=== PATIENT | male | born 1980 | race Caucasian/White ===

== ENCOUNTER 2021-07-05 13:56 | Outpatient (REF) | payer OTHER, SELFPAY ==
[2021-07-05 14:45] LABS: Influenza A PCR NEGATIVE (Negative); Influenza B PCR NEGATIVE (Negative); Resp Syncy Virus RNA Qual PCR NEGATIVE (Negative); SARS COV2 PCR INHOUSE NEGATIVE (Negative)
== END 2021-07-05 13:57 | disposition home or self-care (01) ==
LOC: HO.LNP 13:56
PROVIDERS: Visit Provider Hospitalist
DX: Z20.822 Contact with and (suspected) exposure to COVID-19 (principal); R06.00 Dyspnea, unspecified
CPT/HCPCS: 0241U

== ENCOUNTER 2021-07-12 12:11 | Outpatient (REF) | payer OTHER, SELFPAY ==
--- NOTE | ~2021-07-12 | XR_ITS ---
EXAMINATION: XR CHEST CLINICAL INFORMATION: Dyspnea COMPARISON: None TECHNIQUE: 2 views of the chest were obtained. FINDINGS: There is no evidence of acute parenchymal disease, pneumothorax, or pleural effusion. Heart normal size. No evidence of pulmonary edema. There is a region of some pleural thickening seen central peripheral left hemithorax which may be related to old nondisplaced rib fracture or pleural plaque. XR/XR chest 2V IMPRESSION: No acute disease.
== END 2021-07-12 12:12 | disposition home or self-care (01) ==
LOC: HO.HMGCX 12:11
PROVIDERS: PCP Family Medicine; Visit Provider Family Medicine
DX: R06.00 Dyspnea, unspecified (principal)
CPT/HCPCS: 71046

== ENCOUNTER 2024-12-23 14:04 | Outpatient (AMB) | payer OTHER, SELFPAY ==
--- NOTE | 2024-12-23 14:19 | MHC.PC.OV ---
Vital Signs 12/23/24 14:26 Height 5 ft 7 in BMI Reason not done Patient refused/unable BP 130/60 Blood Pressure Location Lt brachial Position Sitting Respiration 16 Pulse 87 Pulse Source Pulse Oximeter Temp 98.0 F Temp Source Oral Pulse Oximetry (%) 97 Oxygen Delivery Method Room Air Intake Visit Reasons: Rehab F/U discharged december 07 Intake Note: patient is scheduled for tcm Parachute Manufacturing Supervisor Required: No Automotive Service Manager: Present Accompanied by: Family/Other Allergies acetaminophen [From VICODIN] Allergy (Mild, Verified 12/23/24 14:21) HIVES bee pollen [BEE STINGS] Allergy (Unknown, Verified 12/23/24 14:21) ANAPHYLATIC hydrocodone [Vicodin] Allergy (Unknown, Verified 12/23/24 14:21) hives From VICODIN Allergy (Mild, Uncoded 07/05/21 12:19) HIVES Tobacco use date assessed: 09/05/22 HPI Rehab F/U discharged december 07 HPI Details Patient initially presented to [facility] after being found down by his with right-sided weakness left-sided gaze and inability to speak coherently. CT scan of the head showed left-sided MCA (M2) occlusion and he was transferred to [facility]. A repeat CTA and CT head showed left MCA infarcts, age indeterminate, and infarcts in the right cerebellar hemisphere and a right M2 infarct. Unfortunately, he was outside the thrombolytic therapy window and was not a candidate for thrombectomy. Neurology was consulted. He was started on aspirin and atorvastatin. He had positive Oropeza's criteria for endocarditis and he was started on IV ampicillin/ceftriaxone x6 weeks. Blood cultures were positive for Enterococcus faecalis. Further imaging showed splenic and renal infarcts likely secondary to septic emboli. Imaging also showed a T1 vertebral lytic lesion. Troponin levels were elevated likely secondary to demand ischemia. A transthoracic echo due to endocarditis showed progression of aortic and mitral valve disease. Patient may need valve repair in future. He remains on aspirin and atorvastatin. Referred to neurology Continue divalproex PT/OT rehab Speech language pathology Regular diet with nectar thick liquids He states he is no longer on linezolid. Referred to Infectious Disease Recent endocarditis and aortic and mitral valve disease. Referred to Cardiology Incidental T1 vertebral lytic lesion Check bone scan He is scheduled for physical therapy, occupational therapy. He has a speech language pathologist working with him. TCM TCM Information Date of Discharge 12/15/24 Discharged From Other ([facility] Interactive Contact Date (Reference documentation from this date) 12/23/24 [facility]LY [facility] Social History Housing: Apartment Patient Tobacco Use Status: Current everyday Tobacco user e-Cigarette/Vaping Use: Never Used Second Hand Smoke Exposure: No service: No Current occupational status: unemployed Current occupation: seeking employment. Cognitive needs: No Hearing needs: No Vision needs: No Questionnaire PHQ-9 Over the last 2 weeks, how often have you been bothered by any of the following problems? 1. Little interest or pleasure in doing things: not at all 2. Feeling down, depressed, or hopeless: not at all 3. Trouble falling or staying asleep, or sleeping too much: nearly every day 4. Feeling tired or having little energy: more than half the days 5. Poor appetite or overeating: not at all 6. Feeling bad about yourself - or that you are a failure or have let yourself or your family down: more than half the days 7. Trouble concentrating on things, such as reading the newspaper or watching television: not at all 8. Moving or speaking so slowly that other people could have noticed. Or the opposite - being so fidgety or restless that you have been moving around a lot more than usual: not at all 9. Thoughts that you would be better off or of hurting yourself in some way: not at all Total score: 7 Source: Developed by Drs. Jimmy Blevins, Christina Erwin, Robert Werner and colleagues, with an educational carmella from [employer]. Thrive Questionnaire I am a: Parent/Caregiver What is your living situation today?: I have a steady place to live Within the past 12 months, did the food you bought not last and you didn't have the money to get more?: I choose not to answer this question Within the past 12 months, did you worry whether your food would run out before you got money to buy more?: I choose not to answer this question Do you have trouble paying for medicines?: I choose not to answer this question Do you have trouble getting transportation to medical appointments?: Yes Do you have trouble paying your heating and electricity bill?: I choose not to answer this question Do you have trouble taking care of your child, family member or friend?: I choose not to answer this question Do you have trouble with day-to-day activities such as bathing, preparing meals, shopping, managing finances, etc.?: Yes Are you currently unemployed and looking for a job?: No Are you interested in more education?: No Please select the resources that you would like help with: Transportation Currently or been in a relationship where the following occur: I choose not to answer THRIVE Score: 1 AUDIT C Alcohol Use Questionnaire (AUDIT-C) 1. How often do you have a drink containing alcohol?: Never Total Score: 0 CRISTINA-7 AMB Questionnaire CRISTINA-7 Feeling nervous, anxious, or on edge: 0 = Not at all Not being able to stop or control worryin = Not at all Worrying too much about different things: 0 = Not at all Trouble relaxin = Not at all Being so restless that it is hard to sit still: 0 = Not at all Becoming easily annoyed or irritable: 0 = Not at all Feeling afraid as if something awful might happen: 0 = Not at all Total CRISTINA-7 score (0-4 normal; 5-9 mild; 10-14 moderate; 15-21 severe): 0 Source: Developed by Drs. Jimmy Blevins, Christina Erwin, Robert Werner and colleagues, with an educational carmella from [employer]. Review of Systems Const Denies chills, Denies fatigue, Denies fever(s), Denies headache(s) and Denies weakness ENT Denies dizziness and Denies headache(s) Card Denies dyspnea Resp Denies cough, Denies dyspnea, Denies wheezing and Denies other (shortness of breath) Musc Denies numbness and Denies tingling Neuro Denies dizziness, Denies headache(s), Denies numbness, Denies tingling and Denies weakness Psych Denies anxiety and Denies depression Endo Denies fatigue Aller/Immun Denies wheezing Physical exam (Primary Care) Tobacco/Smoking Status: Tobacco use Status Tobacco use date assessed 09/05/22 12/23/24 14:25 Patient Tobacco Use Status Current everyday Tobacco 12/23/24 14:25 e-Cigarette/Vaping Use Never Used 12/23/24 14:25 PHQ-9: PHQ-9 Score PHQ-9: Total score 7 12/23/24 14:25 Currently or been in a relationship where the following occur: I choose not to answer Const General: well developed; No acute distress Nutritional Appearance: well nourished Orientation/consciousness: patient oriented x3 HENMT Head: Yes normocephalic and Yes atraumatic Eyes General: appearance normal, both eyes and all related structures Pupils: Equal, round and reactive pupils present EOM: EOMs intact bilaterally Resp Effort & Inspection: normal respiratory effort Cardio Heart sounds: Murmur heart sound present Neuro Other: R sided weakness Facial weakness General: patient oriented x3 and gait normal Cranial nerves: Yes Equal, round and reactive pupils present Psych Affect: normal affect Coding Level of Care Code Est Pt Level 5 (26874) Diagnoses Left acute arterial ischemic stroke, MCA (middle cerebral artery) I63.512 Acute ischemic right MCA stroke I63.511 Embolic stroke involving right cerebellar artery I63.441 Endocarditis I38 Mitral valve disease I05.9 DOMINGA (acute kidney injury) N17.9 Splenic infarction D73.5 Lytic lesion of bone on x-ray M89.8X9 Expressive aphasia R47.01 Yeast infection of the skin B37.2 Assessment & Plan Assessment & Plan (1) Left acute arterial ischemic stroke, MCA (middle cerebral artery): Code(s): I63.512 - Cerebral infarction due to unspecified occlusion or stenosis of left middle cerebral artery Category: Medical (2) Acute ischemic right MCA stroke: Code(s): I63.511 - Cerebral infarction due to unspecified occlusion or stenosis of right middle cerebral artery Category: Medical (3) Embolic stroke involving right cerebellar artery: Code(s): I63.441 - 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 Category: Medical (4) Endocarditis: Code(s): I38 - Endocarditis, valve unspecified Category: Medical (5) Mitral valve disease: Code(s): I05.9 - Rheumatic mitral valve disease, unspecified Category: Medical (6) DOMINGA (acute kidney injury): Code(s): N17.9 - Acute kidney failure, unspecified Category: Medical (7) Splenic infarction: Code(s): D73.5 - Infarction of spleen Category: Medical (8) Lytic lesion of bone on x-ray: Code(s): M89.8X9 - Other specified disorders of bone, unspecified site Category: Medical (9) Expressive aphasia: Code(s): R47.01 - Aphasia Category: Medical (10) Yeast infection of the skin: Code(s): B37.2 - Candidiasis of skin and nail Category: Medical Plan Patient initially presented to [facility] on 11/05/24 after being found down by his with right-sided weakness left-sided gaze and inability to speak coherently. CT scan of the head showed left-sided MCA (M2) occlusion and he was transferred to [facility] on 11/06/24. A repeat CTA and CT head showed left MCA infarcts, age indeterminate, and infarcts in the right cerebellar hemisphere and a right M2 infarct. Unfortunately, he was outside the thrombolytic therapy window and was not a candidate for thrombectomy. Neurology was consulted. He was started on aspirin and atorvastatin. He had positive Oropeza's criteria for endocarditis and he was started on IV ampicillin/ceftriaxone x6 weeks. Blood cultures were positive for Enterococcus faecalis. Further imaging showed splenic and renal infarcts likely secondary to septic emboli. Imaging also showed a T1 vertebral lytic lesion. Troponin levels were elevated likely secondary to demand ischemia. A transthoracic echo due to endocarditis showed progression of aortic and mitral valve disease. Patient may need valve repair in future. Pt was discharged on 3 weeks later on: Aspirin Atorvastatin Divalproex Linezolid - Completed Melatonin Nicotine Discontinued & no longer smoking Pantoprazole Quetiapine Ceftriaxone - Completed Referred to neurology He remains on aspirin and atorvastatin. Continue divalproex PT/OT rehab [facility] Speech language pathology. [place]line via [facility] Regular diet with nectar thick liquids Finished linezolid today. Referred to Infectious Disease @ [facility] Recent endocarditis and aortic and mitral valve disease. Referred to Cardiology Dr Hilario Incidental T1 vertebral lytic lesion Check bone scan Orders: Orders NM bone scan whole body Today M89.8X9 - Other specified disorders of bone, unspecified site Troponin-I High Sensitivity Today I05.9 - Rheumatic mitral valve disease, unspecified Complete Blood Count Auto Diff Today N17.9 - Acute kidney failure, unspecified, Z00.00 - Encounter for general adult medical examination without abnormal findings Comprehensive Met. Panel Today N17.9 - Acute kidney failure, unspecified B Type Natriuretic Peptide Today I05.9 - Rheumatic mitral valve disease, unspecified, I50.9 - Heart failure, unspecified Referrals Neurology Referral I38 - Endocarditis, valve unspecified, I63.441 - 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, I63.511 - Cerebral infarction due to unspecified occlusion or stenosis of right middle cerebral artery, I63.512 - Cerebral infarction due to unspecified occlusion or stenosis of left middle cerebral artery, I66.9 - Occlusion and stenosis of unspecified cerebral artery, I76 - Septic arterial embolism, R47.01 - Aphasia Ophthalmology Referral H53.9 - Unspecified visual disturbance, I38 - Endocarditis, valve unspecified, I66.9 - Occlusion and stenosis of unspecified cerebral artery, I76 - Septic arterial embolism Infectious Disease Referral I38 - Endocarditis, valve unspecified Cardiology Referral I05.9 - Rheumatic mitral valve disease, unspecified, I38 - Endocarditis, valve unspecified Medications: New lidocaine 5% 1 ea topical DAILY 30 days 30 grams 2RF G62.9 - Polyneuropathy, unspecified pantoprazole (Protonix) 20 mg PO DAILY 90 days 90 tabs 3RF gabapentin 300 mg PO BEDTIME 30 days 30 caps 2RF clotrimazole 1% 1 appl topical BID 2 weeks 45 grams 1RF
[2024-12-23 14:26] VITALS: BP 130/60; PULSE 87; RESP 16; TEMP 36.7; O2SAT 97
== END 2024-12-23 15:27 | disposition home or self-care (01) ==
LOC: HO.HMCFM 14:05
PROVIDERS: PCP Family Medicine; Visit Provider Family Medicine
DX: I63.512 Cerebral infarction due to unspecified occlusion or stenosis of left middle cerebral artery (principal); I63.511 Cerebral infarction due to unspecified occlusion or stenosis of right middle cerebral artery; I63.441 Cerebral infarction due to embolism of right cerebellar artery; I38 Endocarditis, valve unspecified; I05.9 Rheumatic mitral valve disease, unspecified; N17.9 Acute kidney failure, unspecified; D73.5 Infarction of spleen; M89.8X9 Other specified disorders of bone, unspecified site; R47.01 Aphasia; B37.2 Candidiasis of skin and nail

== ENCOUNTER → 2024-12-23 14:04 | Outpatient (BNVA) | payer OTHER, SELFPAY | PROVIDERS: PCP Family Medicine; Visit Provider Family Medicine | DX: Z13.89 Encounter for screening for other disorder (principal) ==

== ENCOUNTER 2024-12-23 15:17 | Outpatient (REF) | payer OTHER, SELFPAY ==
[2024-12-23 17:41] LABS: MANUAL DIFF FLAG NO
[2024-12-23 17:56] LABS: Basophils Percent Auto 0.6 % (0-2); Eosinophils Percent Auto 0.6 % (0-4); Hemoglobin 12.4 g/dl (14.0-18.0); Imm Gran Abs Auto 0.02 X10*3/uL (0.00-0.03); Imm Gran Pct Auto 0.3 % (0.0-0.4); Lymphocytes Absolute Auto 1.9 X10*3/uL (1.2-4.9); Lymphocytes Percent Auto 28.5 % (20-40); Mean Corpuscular HGB Conc 32.6 g/dl (31.0-36.0); Mean Corpuscular Hemoglobin 28.6 pg (27.0-33.0); Mean Corpuscular Volume 87.8 fL (80.0-98.0); Mean Platelet Volume 10.8 fL (9.4-12.4); Monocytes Absolute Auto 0.6 X10*3/uL (0.1-1.2); Monocytes Percent Auto 8.2 % (2-11); Neutrophils Absolute Auto 4.1 x10*3/uL (2.0-8.3); Neutrophils Percent Auto 61.8 % (45-73); Platelet Count 163 X10*3/uL (160-400); Red Blood Count 4.33 X10*6/uL (4.60-5.80); Red Cell Distribution Width 22.1 % (11.0-16.0); White Blood Count 6.7 X10*3/uL (4.8-10.8)
[2024-12-23 18:14] LABS: Troponin-I High Sensitivity < 2.7 ng/L (<3.5-35.0)
[2024-12-23 18:16] LABS: Alanine Aminotransferase 13 U/L (0-40); Albumin Level 3.8 g/dL (3.5-5.0); Alkaline Phosphatase 56 U/L (39-117); Anion Gap 11 (12-20); Aspartate Amino Transferase 29 U/L (5-37); Bilirubin Total 0.3 mg/dL (0.0-1.0); Blood Urea Nitrogen 15 mg/dL (9-16); Calcium 8.9 mg/dL (8.4-10.2); Carbon Dioxide 22 mmol/L (22-29); Chloride 108 mmol/L (96-108); Estimated Glomerular Filt Rate > 60; Glucose Random 86 mg/dL (60-115); Potassium 4.2 mmol/L (3.3-5.1); Sodium 137 mmol/L (135-145); Total Protein 6.8 g/dL (6.5-8.0)
[2024-12-23 18:20] LABS: B Type Natriuretic Peptide 54 pg/mL (<100)
== END 2024-12-23 15:18 | disposition home or self-care (01) ==
LOC: HO.WFDLDS 15:17
PROVIDERS: Visit Provider Family Medicine
DX: I63.513 Cerebral infarction due to unspecified occlusion or stenosis of bilateral middle cerebral arteries (principal); I63.441 Cerebral infarction due to embolism of right cerebellar artery; I38 Endocarditis, valve unspecified; I05.9 Rheumatic mitral valve disease, unspecified; N17.9 Acute kidney failure, unspecified; D73.5 Infarction of spleen; M89.8X9 Other specified disorders of bone, unspecified site; R47.01 Aphasia; B37.2 Candidiasis of skin and nail; Z00.00 Encounter for general adult medical examination without abnormal findings; I50.9 Heart failure, unspecified
CPT/HCPCS: 36415; 80053; 83880; 84484; 85025; 99212

== ENCOUNTER 2024-12-30 15:22 | Outpatient (AMB) | payer OTHER, SELFPAY ==
--- NOTE | 2024-12-30 15:58 | A.OFFPC_ITS ---
Intake Visit Reasons: f/u disability forms, chronic conditions Allergies acetaminophen [From VICODIN] Allergy (Mild, Verified 12/23/24 14:21) HIVES bee pollen [BEE STINGS] Allergy (Unknown, Verified 12/23/24 14:21) ANAPHYLATIC hydrocodone [Vicodin] Allergy (Unknown, Verified 12/23/24 14:21) hives From VICODIN Allergy (Mild, Uncoded 07/05/21 12:19) HIVES Medication List - Last Reconciled 12/30/24 by Christopher Sheridan MD amoxicillin 500 mg PO Q12H 14 days aspirin 81 mg PO DAILY atorvastatin 80 mg PO BEDTIME cetirizine 10 mg PO DAILY PRN 90 days clotrimazole 1% 1 appl topical BID 2 weeks divalproex mg PO gabapentin 300 mg PO BEDTIME 30 days lidocaine 5% 1 ea topical DAILY 30 days melatonin mg PO omeprazole 20 mg PO DAILY 90 days pantoprazole 20 mg PO DAILY pantoprazole (Protonix) 20 mg PO DAILY 90 days ProAir HFA 90 mcg/actuation (albuterol sulfate) 2 puffs inhalation Q4-6H PRN 1 month NS quetiapine mg PO Tobacco use date assessed: 09/05/22 HPI f/u disability forms, chronic conditions HPI Details 44 y/o male presents for disability brendan rwork, labs & CVA. S/p?stroke Had?referred?him?to?[facility]?neurology?and?neuro?has?not?they?can?get?him?in in?the?next?few?weeks?as?we?had?hoped. They?recommended?getting?an?MRI?which?I?have?ordered?today. [facility] Social History Housing: Apartment Patient Tobacco Use Status: Current everyday Tobacco user e-Cigarette/Vaping Use: Never Used Second Hand Smoke Exposure: No service: No Current occupational status: unemployed Current occupation: seeking employment. Cognitive needs: No Hearing needs: No Vision needs: No Questionnaire Thrive Questionnaire Date Thrive assessed: 12/23/24 I am a: Parent/Caregiver What is your living situation today?: I have a steady place to live Within the past 12 months, did the food you bought not last and you didn't have the money to get more?: I choose not to answer this question Within the past 12 months, did you worry whether your food would run out before you got money to buy more?: I choose not to answer this question Do you have trouble paying for medicines?: I choose not to answer this question Do you have trouble getting transportation to medical appointments?: Yes Do you have trouble paying your heating and electricity bill?: I choose not to answer this question Do you have trouble taking care of your child, family member or friend?: I choose not to answer this question Do you have trouble with day-to-day activities such as bathing, preparing meals, shopping, managing finances, etc.?: Yes Are you currently unemployed and looking for a job?: No Are you interested in more education?: No Please select the resources that you would like help with: Transportation Currently or been in a relationship where the following occur: I choose not to answer THRIVE Score: 1 Review of Systems Const Denies chills, Denies fatigue, Denies fever(s), Denies headache(s) and Denies we akness ENT Denies dizziness and Denies headache(s) Card Denies dyspnea Resp Denies cough, Denies dyspnea, Denies wheezing and Denies other (shortness of breath) Musc Denies numbness and Denies tingling Neuro Denies dizziness, Denies headache(s), Denies numbness, Denies tingling and Denies weakness Psych Denies anxiety and Denies depression Endo Denies fatigue Aller/Immun Denies wheezing Physical exam (Primary Care) Tobacco/Smoking Status: Tobacco use Status Tobacco use date assessed 09/05/22 12/30/24 15:58 Patient Tobacco Use Status Current everyday Tobacco 12/30/24 15:58 e-Cigarette/Vaping Use Never Used 12/30/24 15:58 Thrive Assessment: Date of Thrive Assessment Date Thrive assessed 12/23/24 12/30/24 15:58 Currently or been in a relationship where the following occur: I choose not to answer Const General: well developed; No acute distress Nutritional Appearance: well nourished Orientation/consciousness: patient oriented x3 HENMT Head: Yes normocephalic and Yes atraumatic Eyes General: appearance normal, both eyes and all related structures Pupils: Equal, round and reactive pupils present EOM: EOMs intact bilaterally Resp Effort & Inspection: normal respiratory effort Neuro General: patient oriented x3 and gait normal Cranial nerves: Yes Equal, round and reactive pupils present Psych Affect: normal affect Coding Level of Care Code Est Pt Level 4 (98153) Diagnoses Left acute arterial ischemic stroke, MCA (middle cerebral artery) I63.512 Embolic stroke involving right cerebellar artery I63.441 Acute ischemic right MCA stroke I63.511 Right leg weakness R29.898 Right arm weakness R29.898 Assessment & Plan Assessment & Plan (1) Left acute arterial ischemic stroke, MCA (middle cerebral artery): Code(s): I63.512 - Cerebral infarction due to unspecified occlusion or stenosis of left middle cerebral artery Category: Medical Plan: S/p?stroke Had?referred?him?to?[facility]?neurology?and?neuro?has?not?they?can?get?him?in in?the?next?few?weeks?as?we?had?hoped. They?recommended?getting?an?MRI?which?I?have?ordered?today. If?I?see?any?concerns?I?will?request?a?sooner?appointment. (2) Embolic stroke involving right cerebellar artery: Code(s): I63.441 - 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 Category: Medical Plan: As above (3) Acute ischemic right MCA stroke: Code(s): I63.511 - Cerebral infarction due to unspecified occlusion or stenosis of right middle cerebral artery Category: Medical Plan: As above (4) Right leg weakness: Code(s): R29.898 - Other symptoms and signs involving the musculoskeletal system Category: Medical Plan: Will?get?patient?ankle-foot?orthotic (5) Right arm weakness: Code(s): R29.898 - Other symptoms and signs involving the musculoskeletal system Category: Medical Plan: Right?arm?weakness/flaccid?paralysis Continue?physical?therapy/occupational?therapy Orders: Orders MR head/brain wo con Today H53.419 - [place] involving central area, unspe cified eye, I63.441 - 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, I63.511 - Cerebral infarction due to unspecified occlusion or stenosis of right middle cerebral artery, I63.512 - Cerebral infarction due to unspecified occlusion or stenosis of left middle cerebral artery, I66.9 - Occlusion and stenosis of unspecified cerebral artery, I76 - Septic arterial embolism, R47.01 - Aphasia Medications: New amoxicillin 500 mg PO Q12H 14 days 28 tabs 0RF miscellaneous medical supply Daily As directed, 999 days 1 ea 0RF I63.512 - Cerebral infarction due to unspecified occlusion or stenosis of left middle cerebral artery, R29.898 - Other symptoms and signs involving the musculoskeletal system
== END 2024-12-30 16:07 | disposition home or self-care (01) ==
LOC: HO.HMCFM 15:23
PROVIDERS: PCP Family Medicine; Visit Provider Family Medicine
DX: I63.512 Cerebral infarction due to unspecified occlusion or stenosis of left middle cerebral artery (principal); I63.441 Cerebral infarction due to embolism of right cerebellar artery; I63.511 Cerebral infarction due to unspecified occlusion or stenosis of right middle cerebral artery; R29.898 Other symptoms and signs involving the musculoskeletal system

== ENCOUNTER → 2024-12-30 15:22 | Outpatient (BNVA) | payer OTHER, SELFPAY | PROVIDERS: PCP Family Medicine; Visit Provider Family Medicine | DX: H53.419 Scotoma involving central area, unspecified eye (principal); R29.898 Other symptoms and signs involving the musculoskeletal system; R47.01 Aphasia; I76 Septic arterial embolism; Z86.73 Personal history of transient ischemic attack (TIA), and cerebral infarction without residual deficits | CPT/HCPCS: 99212 ==

== ENCOUNTER 2025-01-04 13:50 | Outpatient (AMB) | payer OTHER, SELFPAY ==
--- NOTE | 2025-01-04 13:53 | A.OFFPC_ITS ---
Vital Signs 01/04/25 14:04 Height 5 ft 7 in BMI Reason not done Patient refused/unable BP 120/60 Blood Pressure Location Lt brachial Position Sitting Respiration 16 Pulse 77 Pulse Source Pulse Oximeter Temp 97.7 F Temp Source Oral Pulse Oximetry (%) 93 Oxygen Delivery Method Room Air Intake Visit Reasons: Disability PW Allergies acetaminophen [From VICODIN] Allergy (Mild, Verified 01/04/25 13:55) HIVES bee pollen [BEE STINGS] Allergy (Unknown, Verified 01/04/25 13:55) ANAPHYLATIC hydrocodone [Vicodin] Allergy (Unknown, Verified 01/04/25 13:55) hives From VICODIN Allergy (Mild, Uncoded 01/04/25 13:55) HIVES Tobacco use date assessed: 01/04/25 Dental Screening Dental Screen Date: 01/04/25 Did you have a dental visit in the last 12 months?: Yes Did you have a dental problem in the last 6 months where you did not have access to dental care?: Yes Was dental information given to patient?: No HPI Disability PW HPI Details 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 Patient?presents?today?for?transitional?assistance?paperwork?which?I?filled?out. Also?filled?out [place] handicap?placard. [facility] Social History Housing: Apartment Patient Tobacco Use Status: Current everyday Tobacco user e-Cigarette/Vaping Use: Never Used Second Hand Smoke Exposure: No service: No Current occupational status: unemployed Current occupation: seeking employment. Cognitive needs: No Hearing needs: No Vision needs: No Questionnaire PHQ-9 Over the last 2 weeks, how often have you been bothered by any of the following problems? 1. Little interest or pleasure in doing things: not at all 2. Feeling down, depressed, or hopeless: not at all 3. Trouble falling or staying asleep, or sleeping too much: not at all 4. Feeling tired or having little energy: not at all 5. Poor appetite or overeating: not at all 6. Feeling bad about yourself - or that you are a failure or have let yourself or your family down: not at all 7. Trouble concentrating on things, such as reading the newspaper or watching television: not at all 8. Moving or speaking so slowly that other people could have noticed. Or the opposite - being so fidgety or restless that you have been moving around a lot more than usual: not at all 9. Thoughts that you would be better off or of hurting yourself in some way: not at all Total score: 0 Depression Screening Interpretation: Negative Depression Screening Done: Yes [id number] - PHQ-9 Billing: Yes Source: Developed by Drs. Jimmy Blevins, Christina Erwin, Robert Werner and colleagues, with an educational carmella from [employer]. Thrive Questionnaire Date Thrive assessed: 01/04/25 I am a: Parent/Caregiver What is your living situation today?: I have a steady place to live Within the past 12 months, did the food you bought not last and you didn't have the money to get more?: I choose not to answer this question Within the past 12 months, did you worry whether your food would run out before you got money to buy more?: I choose not to answer this question Do you have trouble paying for medicines?: I choose not to answer this question Do you have trouble getting transportation to medical appointments?: Yes Do you have trouble paying your heating and electricity bill?: I choose not to answer this question Do you have trouble taking care of your child, family member or friend?: I choose not to answer this question Do you have trouble with day-to-day activities such as bathing, preparing meals, shopping, managing finances, etc.?: Yes Are you currently unemployed and looking for a job?: No Are you interested in more education?: No Please select the resources that you would like help with: Transportation Currently or been in a relationship where the following occur: I choose not to answer THRIVE Score: 1 CRISTINA-7 AMB Questionnaire CRISTINA-7 Date CRISTINA - 7 assessed: 01/04/25 Feeling nervous, anxious, or on edge: 0 = Not at all Not being able to stop or control worryin = Not at all Worrying too much about different things: 0 = Not at all Trouble relaxin = Not at all Being so restless that it is hard to sit still: 0 = Not at all Becoming easily annoyed or irritable: 0 = Not at all Feeling afraid as if something awful might happen: 0 = Not at all Total CRISTINA-7 score (0-4 normal; 5-9 mild; 10-14 moderate; 15-21 severe): 0 Source: Developed by Drs. Jimmy Blevins, Christina Erwin, Robert Werner and colleagues, with an educational carmella from [employer]. CRISTINA-7 Assessment Billing CRISTINA-7 Assessment Tool: CRISTINA-7 Assessment 04981 Review of Systems Const Denies chills, Denies fatigue, Denies fever(s), Denies headache(s) and Denies weakness ENT Denies dizziness and Denies headache(s) Card Denies dyspnea Resp Denies cough, Denies dyspnea, Denies wheezing and Denies other (shortness of breath) Musc Denies numbness and Denies tingling Neuro Denies dizziness, Denies headache(s), Denies numbness, Denies tingling and Denies weakness Psych Denies anxiety and Denies depression Endo Denies fatigue Aller/Immun Denies wheezing Physical exam (Primary Care) Vital Signs: Last Vital Signs Temp 97.7 F 01/04/25 14:04 Pulse 77 01/04/25 14:04 Resp 16 01/04/25 14:04 BP 120/60 01/04/25 14:04 Pulse Ox 93 01/04/25 14:04 Oxygen Delivery Method Room Air 01/04/25 14:04 Tobacco/Smoking Status: Tobacco use Status Tobacco use date assessed 01/04/25 01/04/25 14:02 Patient Tobacco Use Status Current everyday Tobacco 01/04/25 13:54 e-Cigarette/Vaping Use Never Used 01/04/25 13:54 PHQ-9: PHQ-9 Score PHQ-9: Total score 0 01/04/25 14:02 Depression Screening Interpretation: Negative Thrive Assessment: Date of Thrive Assessment Date Thrive assessed 01/04/25 01/04/25 14:02 Currently or been in a relationship where the following occur: I choose not to answer Const General: well developed; No acute distress Nutritional Appearance: well nourished Orientation/consciousness: patient oriented x3 HENMT Head: Yes normocephalic and Yes atraumatic Eyes General: appearance normal, both eyes and all related structures Pupils: Equal, round and reactive pupils present EOM: EOMs intact bilaterally Resp Effort & Inspection: normal respiratory effort Auscultation: clear to auscultation bilaterally Cardio Rate: regular rate Rhythm: regular rhythm Heart sounds: S1 normal heart sound present, S2 normal heart sound present, no gallops, no murmurs and no rubs Neuro General: patient oriented x3 and gait normal Cranial nerves: Yes Equal, round and reactive pupils present Psych Affect: normal affect Coding Level of Care Code Est Pt Level 4 (13769) Diagnoses Left acute arterial ischemic stroke, MCA (middle cerebral artery) I63.512 Right leg weakness R29.898 Right arm weakness R29.898 Additional Codes CRISTINA-7 Assessment Billing - CRISTINA-7 Assessment Tool: CRISTINA-7 Assessment 15847 ([id number]) PHQ-9 - 40349 - PHQ-9 Billing: Yes ([id number]) Assessment & Plan Assessment & Plan (1) Left acute arterial ischemic stroke, MCA (middle cerebral artery): Code(s): I63.512 - Cerebral infarction due to unspecified occlusion or stenosis of left middle cerebral artery Category: Medical (2) Right leg weakness: Code(s): R29.898 - Other symptoms and signs involving the musculoskeletal system Category: Medical (3) Right arm weakness: Code(s): R29.898 - Other symptoms and signs involving the musculoskeletal system Category: Medical Plan Patient?with?endocarditis?and?septic?embo li?who?initially?presented?to?the?emergency?department?on?11/06/2024?with?multiple ?strokes/septic?emboli,?primarily?left?acute?MCA?stroke?with right?upper?and?lower?extremity?weakness/flaccid?paralysis. Patient?presents?today?for?transitional?assistance?paperwork?which?I?filled?out. Also?filled?out [place] handicap?placard. Social?worker?will?help?him?get SSDI?paperwork?started?and?I recommend?this?as?p atient?is?permanently?disabled. Medications: New epinephrine (EpiPen 2-Margarito) 0.3 mg (0.3 mL) IM Q4H 30 days PRN 2 ea 2RF anaphylaxis
[2025-01-04 14:04] VITALS: BP 120/60; PULSE 77; RESP 16; TEMP 36.5; O2SAT 93
== END 2025-01-04 16:39 | disposition home or self-care (01) ==
LOC: HO.HMCFM 13:52
PROVIDERS: PCP Family Medicine; Visit Provider Family Medicine
DX: I63.512 Cerebral infarction due to unspecified occlusion or stenosis of left middle cerebral artery (principal); R29.898 Other symptoms and signs involving the musculoskeletal system

== ENCOUNTER → 2025-01-04 13:50 | Outpatient (BNVA) | payer OTHER, SELFPAY | PROVIDERS: PCP Family Medicine; Visit Provider Family Medicine | DX: I69.351 Hemiplegia and hemiparesis following cerebral infarction affecting right dominant side (principal) | CPT/HCPCS: 96127; 99212 ==

== ENCOUNTER → 2025-01-06 10:00 | Outpatient (REF) | payer OTHER, SELFPAY ==
--- NOTE | ~2025-01-06 | NM_ITS ---
EXAMINATION: NM BONE SCAN WHOLE BODY HISTORY: M89.8X9 - Other specified disorders of bone, unspecified site. TECHNIQUE: A total body bone scan was performed following the intravenous administration of 25 mCi technetium 99m-MDP. COMPARISON: There are no prior studies for comparison. Review of the patient's medical record describes a lytic lesion in the T1 vertebral body on outside imaging. FINDINGS: There is a focus of increased uptake at the T1 vertebral level which is slightly to the left of midline. No additional abnormal spinal uptake is seen. Activity in the region of the right AC joint is likely degenerative in nature. There is also probable mild degenerative uptake involving the left ankle. A focus of activity in the right mandible may represent periodontal disease. The remainder the visualized osseous structures demonstrate a normal distribution of activity. There is normal bilateral renal uptake. NM/NM bone scan whole body IMPRESSION: Focus of increased uptake at the T1 vertebral level which is nonspecific, but concerning given the reported lytic lesion noted on outside imaging. MRI of the cervical spine is suggested for further evaluation. Electronically signed by: Jimmy Garza MD 01/06/2025 02:40 PM EDT
== END ==
LOC: HO.NUCMED 10:00
PROVIDERS: PCP Family Medicine; Visit Provider Family Medicine
DX: M89.8X9 Other specified disorders of bone, unspecified site (principal)
CPT/HCPCS: 78306; A9503

== ENCOUNTER → 2025-01-06 10:02 | Outpatient (BNV) | payer OTHER, SELFPAY | PROVIDERS: PCP Family Medicine; Visit Provider Radiology Diagnostic Radiology | DX: R93.7 Abnormal findings on diagnostic imaging of other parts of musculoskeletal system (principal) | CPT/HCPCS: 78306 ==

== ENCOUNTER 2025-03-09 11:03 | Outpatient (AMB) | payer OTHER, SELFPAY ==
--- NOTE | 2025-03-09 11:06 | MHC.PC.OV ---
Vital Signs 03/09/25 11:16 Height 5 ft 7 in Weight 186 lb BMI 29.1 BP 111/65 Blood Pressure Location Lt brachial Position Sitting Respiration 16 Pulse 80 Pulse Source Pulse Oximeter Temp 98.1 F Temp Source Oral Pulse Oximetry (%) 97 Oxygen Delivery Method Room Air Intake Visit Reasons: HDF from [facility] on 02/07/2025 Intake Note: patient here for HD follow up from [facility] Partner Management Consultant Required: No Allergies acetaminophen (From VICODIN) Allergy (Mild, Verified 03/09/25 11:11) HIVES bee pollen (BEE STINGS) Allergy (Unknown, Verified 03/09/25 11:11) ANAPHYLATIC hydrocodone (Vicodin) Allergy (Unknown, Verified 03/09/25 11:11) hives From VICODIN Allergy (Mild, Uncoded 01/04/25 13:55) HIVES Tobacco use date assessed: 03/09/25 Dental Screening Dental Screen Date: 03/09/25 Did you have a dental visit in the last 12 months?: Yes Did you have a dental problem in the last 6 months where you did not have access to dental care?: No Was dental information given to patient?: Patient has dentist HPI HDF from [facility] on 02/07/2025 HPI Details 44 y/o male presents to f/ hospital disch 02/07/25 - had presented for shortness of breath. 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 Chest x-ray and pro BNP suggested volume overload and prompted concern for valvular insufficiency. Found to have severe aortic insufficiency, severe mitral regurgitation, and what appeared to be a small VSD. Had went to operating room on 02/02 for aortic valve replacement, mitral valve repair, and VSD repair. Did well. Recommended f/u with Cardiology. PFS Social History Housing: Apartment Patient Tobacco Use Status: Former Tobacco user e-Cigarette/Vaping Use: Never Used Second Hand Smoke Exposure: No service: No Current occupational status: unemployed Current occupation: seeking employment. Current occupational exposures/hazards: No Cognitive needs: No Hearing needs: No Vision needs: No Questionnaire Thrive Questionnaire Date Thrive assessed: 12/23/24 I am a: Parent/Caregiver What is your living situation today?: I have a steady place to live Within the past 12 months, did the food you bought not last and you didn't have the money to get more?: I choose not to answer this question Within the past 12 months, did you worry whether your food would run out before you got money to buy more?: I choose not to answer this question Do you have trouble paying for medicines?: I choose not to answer this question Do you have trouble getting transportation to medical appointments?: Yes Do you have trouble paying your heating and electricity bill?: I choose not to answer this question Do you have trouble taking care of your child, family member or friend?: I choose not to answer this question Do you have trouble with day-to-day activities such as bathing, preparing meals, shopping, managing finances, etc.?: Yes Are you currently unemployed and looking for a job?: No Are you interested in more education?: No Please select the resources that you would like help with: Transportation Currently or been in a relationship where the following occur: I choose not to answer THRIVE Score: 1 CRISTINA-7 AMB Questionnaire CRISTINA-7 Date CRISTINA - 7 assessed: 01/04/25 Source: Developed by Drs. Jimmy Blevins, Christina Erwin, Robert Werner and colleagues, with an educational carmella from [employer]. Review of Systems Const Denies chills, Denies fatigue, Denies fever(s), Denies headache(s) and Denies weakness ENT Denies dizziness and Denies headache(s) Card Denies dyspnea Resp Denies cough, Denies dyspnea, Denies wheezing and Denies other (shortness of breath) Musc Denies numbness and Denies tingling Neuro Denies dizziness, Denies headache(s), Denies numbness, Denies tingling and Denies weakness Psych Denies anxiety and Denies depression Endo Denies fatigue Aller/Immun Denies wheezing Physical exam (Primary Care) Vital Signs: Last Vital Signs Temp 98.1 F 03/09/25 11:16 Pulse 80 03/09/25 11:16 Resp 16 03/09/25 11:16 BP 111/65 03/09/25 11:16 Pulse Ox 97 03/09/25 11:16 Oxygen Delivery Method Room Air 03/09/25 11:16 BMI result Body Mass Index 29.1 Tobacco/Smoking Status: Tobacco use Status Tobacco use date assessed 03/09/25 03/09/25 11:20 Patient Tobacco Use Status Former Tobacco user 03/09/25 11:20 e-Cigarette/Vaping Use Never Used 03/09/25 11:08 Thrive Assessment: Date of Thrive Assessment Date Thrive assessed 12/23/24 03/09/25 11:08 Currently or been in a relationship where the following occur: I choose not to answer Const General: well developed; No acute distress Nutritional Appearance: well nourished Orientation/consciousness: patient oriented x3 HENMT Head: Yes normocephalic and Yes atraumatic Eyes General: appearance normal, both eyes and all related structures Pupils: Equal, round and reactive pupils present EOM: EOMs intact bilaterally Resp Effort & Inspection: normal respiratory effort Auscultation: clear to auscultation bilaterally Cardio Rate: regular rate Rhythm: regular rhythm Heart sounds: S1 normal heart sound present, S2 normal heart sound present, no gallops, no murmurs and no rubs Neuro General: patient oriented x3 and gait normal Cranial nerves: Yes Equal, round and reactive pupils present Psych Affect: normal affect Coding Level of Care Code Est Pt Level 5 (58983) Diagnoses Status post aortic valve replacement Z95.2 Status post mitral valve repair Z98.890 S/P VSD repair Z87.74 Lytic lesion of bone on x-ray M89.8X9 Assessment & Plan Assessment & Plan (1) Status post aortic valve replacement: Code(s): Z95.2 - Presence of prosthetic heart valve Category: Surgical (2) Status post mitral valve repair: Code(s): Z98.890 - Other specified postprocedural states Category: Surgical (3) S/P VSD repair: Code(s): Z87.74 - Personal history of (corrected) congenital malformations of heart and circulatory system Category: Surgical (4) Lytic lesion of bone on x-ray: Code(s): M89.8X9 - Other specified disorders of bone, unspecified site Category: Medical Plan 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 Chest x-ray and pro BNP suggested volume overload and prompted concern for valvular insufficiency. His other lab work was reassuring. Echocardiogram confirmed valvular insufficiency as well as VSD Patient underwent aortic valve replacement and mitral valve repair and VSD repair by Dr. Harry on 02/02/2025. And his postop course was unremarkable. Patient had follow-up appointment with his chinese teacher on 02/18/2025. Patient is breathing well today. Lungs are clear. Advise they continue to watch for rapid weight changes; 3 lb per day or 5 lb per week. Avoid salt and sodium Follow-up with Cardiology as recommended Patient had lytic lesion of bone seen on imaging in the hospital. Bone scan also shows uptake and T1 vertebra No history of cancer or any current concerns for a primary neoplasm. Likely secondary to IVDU and septic emboli. Will refer to ortho Spoke with patient. His ID specialist that he had been seeing regarding endocarditis at [facility] was aware of the lytic lesion at T1, according to the patient. They will give me information to contact is ID specialist. May be able to cancel referral. Orders: Orders B Type Natriuretic Peptide Today I50.9 - Heart failure, unspecified, M89.8X9 - Other specified disorders of bone, unspecified site Complete Blood Count Auto Diff Today M89.8X9 - Other specified disorders of bone, unspecified site, Z00.00 - Encounter for general adult medical examination without abnormal findings Comprehensive [place]hen[place]. Panel Fast Today M89.8X9 - Other specified disorders of bone, unspecified site, Z00.00 - Encounter for general adult medical examination without abnormal findings Referrals Orthopedics Referral M89.8X9 - Other specified disorders of bone, unspecified site Medications: New metoprolol tartrate 25 mg PO BID 180 tabs 3RF 90 days
[2025-03-09 11:16] VITALS: BP 111/65; PULSE 80; RESP 16; TEMP 36.7; O2SAT 97; BMI 29.1
== END 2025-03-09 12:13 | disposition home or self-care (01) ==
LOC: HO.HMCFM 11:04
PROVIDERS: PCP Family Medicine; Visit Provider Family Medicine
DX: M89.8X9 Other specified disorders of bone, unspecified site (principal); Z95.2 Presence of prosthetic heart valve; Z98.890 Other specified postprocedural states; Z87.74 Personal history of (corrected) congenital malformations of heart and circulatory system

== ENCOUNTER → 2025-03-09 11:03 | Outpatient (BNVA) | payer OTHER, SELFPAY | PROVIDERS: PCP Family Medicine; Visit Provider Family Medicine | DX: Z09 Encounter for follow-up examination after completed treatment for conditions other than malignant neoplasm (principal); Z95.2 Presence of prosthetic heart valve; Z87.74 Personal history of (corrected) congenital malformations of heart and circulatory system; M89.8X9 Other specified disorders of bone, unspecified site; Z86.73 Personal history of transient ischemic attack (TIA), and cerebral infarction without residual deficits | CPT/HCPCS: 99212 ==

== ENCOUNTER 2025-03-09 12:41 | Outpatient (REF) | payer OTHER, SELFPAY ==
[2025-03-09 16:11] LABS: MANUAL DIFF FLAG NO
[2025-03-09 16:16] LABS: Hematocrit 34.8 % (42.0-52.0); Hemoglobin 11.0 g/dl (14.0-18.0); Imm Gran Abs Auto 0.01 X10*3/uL (0.00-0.03); Imm Gran Pct Auto 0.2 % (0.0-0.4); Lymphocytes Absolute Auto 2.3 X10*3/uL (1.2-4.9); Mean Corpuscular HGB Conc 31.6 g/dl (31.0-36.0); Mean Corpuscular Hemoglobin 26.4 pg (27.0-33.0); Mean Corpuscular Volume 83.5 fL (80.0-98.0); NRBC Abs Auto 0.000 X10*3/uL (0.0-0.012); NRBC Pct Auto 0.0 /100WBC (0.0-0.2); Platelet Count 301 X10*3/uL (160-400); Red Blood Count 4.17 X10*6/uL (4.60-5.80); White Blood Count 6.7 X10*3/uL (4.8-10.8)
[2025-03-09 16:28] LABS: Alanine Aminotransferase 13 U/L (0-40); Albumin Level 4.1 g/dL (3.5-5.0); Alkaline Phosphatase 65 U/L (39-117); Anion Gap 13 (12-20); Aspartate Amino Transferase 21 U/L (5-37); Blood Urea Nitrogen 14 mg/dL (9-16); Calcium 8.8 mg/dL (8.4-10.2); Carbon Dioxide 25 mmol/L (22-29); Chloride 103 mmol/L (96-108); Estimated Glomerular Filt Rate > 60; Potassium 4.6 mmol/L (3.3-5.1); Sodium 136 mmol/L (135-145); Total Protein 7.2 g/dL (6.5-8.0)
[2025-03-09 16:31] LABS: B Type Natriuretic Peptide 46 pg/mL (<100)
== END 2025-03-09 12:42 | disposition home or self-care (01) ==
LOC: HO.WFDLDS 12:41
PROVIDERS: Visit Provider Family Medicine
DX: Z00.00 Encounter for general adult medical examination without abnormal findings (principal); I50.9 Heart failure, unspecified; M89.8X9 Other specified disorders of bone, unspecified site
CPT/HCPCS: 36415; 80053; 83880; 85025

== ENCOUNTER → 2025-03-11 23:59 | Outpatient (BNV) | payer OTHER, SELFPAY | PROVIDERS: PCP Family Medicine; Visit Provider Family Medicine | DX: D62 Acute posthemorrhagic anemia (principal); I69.851 Hemiplegia and hemiparesis following other cerebrovascular disease affecting right dominant side; I38 Endocarditis, valve unspecified | CPT/HCPCS: G0179; G0180 ==

== ENCOUNTER → 2025-03-18 23:59 | Outpatient (BNV) | payer OTHER, SELFPAY | PROVIDERS: PCP Family Medicine; Visit Provider Family Medicine | DX: D62 Acute posthemorrhagic anemia (principal); I69.851 Hemiplegia and hemiparesis following other cerebrovascular disease affecting right dominant side | CPT/HCPCS: G0179 ==

== ENCOUNTER 2025-07-04 14:01 | Outpatient (AMB) | payer OTHER, SELFPAY ==
--- NOTE | 2025-07-04 14:03 | MHC.PC.OV ---
Vital Signs 07/04/25 14:14 Height 5 ft 7 in Weight 194 lb 4 oz BMI 30.4 BP 100/68 Blood Pressure Location Lt brachial Position Sitting Respiration 16 Pulse 75 Pulse Source Pulse Oximeter Temp 97.5 F Temp Source Oral Pulse Oximetry (%) 96 Oxygen Delivery Method Room Air Intake Visit Reasons: f/u chronic conditions, resched Intake Note: patient is scheduled for chronic conditions and lab review Fingernail Technician Required: No Allergies acetaminophen (From VICODIN) Allergy (Mild, Verified 07/04/25 14:10) HIVES bee pollen (BEE STINGS) Allergy (Unknown, Verified 07/04/25 14:10) ANAPHYLATIC hydrocodone (Vicodin) Allergy (Unknown, Verified 07/04/25 14:10) hives From VICODIN Allergy (Mild, Uncoded 01/04/25 13:55) HIVES Medication List - Last Reconciled 07/04/25 by Christopher Sheridan MD amoxicillin 500 mg PO Q12H 14 days aspirin (Adult Low Dose Aspirin) 81 mg PO DAILY 90 days atorvastatin 80 mg PO BEDTIME 90 days cetirizine 10 mg PO DAILY PRN 90 days epinephrine (EpiPen 2-Margarito) 0.3 mg (0.3 mL) IM Q4H PRN 30 days metoprolol tartrate 25 mg PO BID 90 days miscellaneous medical supply Daily As directed, 999 days pantoprazole 20 mg PO DAILY 90 days pantoprazole (Protonix) 20 mg PO DAILY 90 days ProAir HFA 90 mcg/actuation (albuterol sulfate) 2 puffs inhalation Q4-6H PRN 1 month NS quetiapine 50 mg PO DAILY 90 days Tobacco use date assessed: 03/09/25 Dental Screening Dental Screen Date: 03/09/25 HPI f/u chronic conditions, resched HPI Details 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 Chest x-ray and pro BNP suggested volume overload and prompted concern for valvular insufficiency. His other lab work was reassuring. Echocardiogram confirmed valvular insufficiency as well as VSD Patient underwent aortic valve replacement and mitral valve repair and VSD repair by Dr. Harry on 02/02/2025. And his postop course was unremarkable. Patient had follow-up appointment with his vehicle sales professional on 02/18/2025. Patient is breathing well today. Lungs are clear. Advise they continue to watch for rapid weight changes; 3 lb per day or 5 lb per week. Avoid salt and sodium Follow-up with Cardiology as recommended Patient had lytic lesion of bone seen on imaging in the hospital. Bone scan also shows uptake and T1 vertebra No history of cancer or any current concerns for a primary neoplasm. Dedicated MRI suggests bone island or atypical hemangioma of bone. Plan: observe & repeat in 6 mos Last labs drawn 03/09/25. Reviewed labs with pt. Ongoing mild anemia. Denies any nose bleeds, blood loss. Pt continues to exercise and eat a healthy diet. PFSH Social History Housing: Apartment Patient Tobacco Use Status: Former Tobacco user e-Cigarette/Vaping Use: Never Used Second Hand Smoke Exposure: No service: No Current occupational status: unemployed Current occupation: seeking employment. Current occupational exposures/hazards: No Cognitive needs: No Hearing needs: No Vision needs: No Questionnaire Thrive Questionnaire Date Thrive assessed: 12/23/24 I am a: Parent/Caregiver What is your living situation today?: I have a steady place to live Within the past 12 months, did the food you bought not last and you didn't have the money to get more?: I choose not to answer this question Within the past 12 months, did you worry whether your food would run out before you got money to buy more?: I choose not to answer this question Do you have trouble paying for medicines?: I choose not to answer this question Do you have trouble getting transportation to medical appointments?: Yes Do you have trouble paying your heating and electricity bill?: I choose not to answer this question Do you have trouble taking care of your child, family member or friend?: I choose not to answer this question Do you have trouble with day-to-day activities such as bathing, preparing meals, shopping, managing finances, etc.?: Yes Are you currently unemployed and looking for a job?: No Are you interested in more education?: No Please select the resources that you would like help with: Transportation Currently or been in a relationship where the following occur: I choose not to answer THRIVE Score: 1 CRISTINA-7 AMB Questionnaire CRISTINA-7 Date CRISTINA - 7 assessed: 01/04/25 Source: Developed by Drs. Jimmy Blevins, Christina Erwin, Robert Werner and colleagues, with an educational carmella from [employer]. Review of Systems Const Denies chills, Denies fatigue, Denies fever(s), Denies headache(s) and Denies weakness ENT Denies dizziness and Denies headache(s) Card Denies chest pain, Denies lightheadedness, Denies dyspnea and Denies other (Palpitations) Resp Denies cough, Denies dyspnea, Denies wheezing and Denies other ( shortness of breath) Musc Denies numbness and Denies tingling Neuro Denies dizziness, Denies headache(s), Denies numbness, Denies tingling, Denies paresthesias and Denies weakness Psych Denies anxiety and Denies depression Endo Denies fatigue Aller/Immun Denies wheezing Physical exam (Primary Care) Tobacco/Smoking Status: Tobacco use Status Tobacco use date assessed 03/09/25 07/04/25 14:04 Patient Tobacco Use Status Former Tobacco user 07/04/25 14:04 e-Cigarette/Vaping Use Never Used 07/04/25 14:04 Thrive Assessment: Date of Thrive Assessment Date Thrive assessed 12/23/24 07/04/25 14:04 Currently or been in a relationship where the following occur: I choose not to answer Const General: no acute distress and well developed Nutritional Appearance: well nourished Orientation/consciousness: patient oriented x3 HENMT Head: Yes normocephalic and Yes atraumatic Eyes General: appearance normal, both eyes and all related structures Pupils: Equal, round and reactive pupils present EOM: EOMs intact bilaterally Resp Effort & Inspection: normal respiratory effort Auscultation: clear to auscultation bilaterally Cardio Rate: regular rate Rhythm: regular rhythm Heart sounds: S1 normal heart sound present, S2 normal heart sound present, no gallops, no murmurs and no rubs Neuro General: patient oriented x3 and gait normal Cranial nerves: Yes Equal, round and reactive pupils present Psych Affect: normal affect Coding Level of Care Code Est Pt Level 4 (05022) Diagnoses Endocarditis I38 Acute ischemic right MCA stroke I63.511 Embolic stroke involving right cerebellar artery I63.441 Expressive aphasia R47.01 Status post aortic valve replacement Z95.2 Mild anemia D64.9 Assessment & Plan Assessment & Plan (1) Endocarditis: Code(s): I38 - Endocarditis, valve unspecified Category: Medical (2) Acute ischemic right MCA stroke: Code(s): I63.511 - Cerebral infarction due to unspecified occlusion or stenosis of right middle cerebral artery Category: Medical (3) Embolic stroke involving right cerebellar artery: Code(s): I63.441 - 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 Chest x-ray and pro BNP suggested volume overload and prompted concern for valvular insufficiency. His other lab work was reassuring. Echocardiogram confirmed valvular insufficiency as well as VSD Patient underwent aortic valve replacement and mitral valve repair and VSD repair by Dr. Harry on 02/02/2025. And his postop course was unremarkable. Patient had follow-up appointment with his vehicle sales professional on 02/18/2025. Patient is breathing well today. Lungs are clear. Advise they continue to watch for rapid weight changes; 3 lb per day or 5 lb per week. Avoid salt and sodium Follow-up with Cardiology as recommended Patient had lytic lesion of bone seen on imaging in the hospital. Bone scan also shows uptake and T1 vertebra No history of cancer or any current concerns for a primary neoplasm. Dedicated MRI suggests bone island or atypical hemangioma of bone. Plan: observe & repeat in 6 mos Also has ongoing mild anemia. Will check labs to investigate further and discuss at his next visit. Orders: Orders Basic Metabolic Panel Today D64.9 - Anemia, unspecified, Z00.00 - Encounter for general adult medical examination without abnormal findings Reticulocyte Count Today D64.9 - Anemia, unspecified Complete Blood Count Auto Diff Today D64.9 - Anemia, unspecified, Z00.00 - Encounter for general adult medical examination without abnormal findings IRON PROFILE Today D64.9 - Anemia, unspecified Ferritin Today D64.9 - Anemia, unspecified Vitamin B12 and Folate Today D64.9 - Anemia, unspecified, E53.8 - Deficiency of other specified B group vitamins
[2025-07-04 14:14] VITALS: BP 100/68; PULSE 75; RESP 16; TEMP 36.4; O2SAT 96; BMI 30.4
== END 2025-07-04 14:31 | disposition home or self-care (01) ==
LOC: HO.HMCFM 14:02
PROVIDERS: PCP Family Medicine; Visit Provider Family Medicine
DX: I38 Endocarditis, valve unspecified (principal); I63.511 Cerebral infarction due to unspecified occlusion or stenosis of right middle cerebral artery; I63.441 Cerebral infarction due to embolism of right cerebellar artery; R47.01 Aphasia; Z95.2 Presence of prosthetic heart valve; D64.9 Anemia, unspecified

== ENCOUNTER → 2025-07-04 14:01 | Outpatient (BNVA) | payer OTHER, SELFPAY | PROVIDERS: PCP Family Medicine; Visit Provider Family Medicine | DX: I69.320 Aphasia following cerebral infarction (principal); D64.9 Anemia, unspecified; Z95.2 Presence of prosthetic heart valve | CPT/HCPCS: 99212 ==

== ENCOUNTER 2025-07-15 14:34 | Outpatient (REF) | payer OTHER, SELFPAY ==
--- OUTSIDE RECORDS SUMMARY | 2025-07-11 11:15 | XMS_ITS | Encounter Summary ---
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 (CMS/HCC V24, CMS/HCC V28) Aphasia Christopher Sheridan MD [address] [place] [address] Phone: tel: fax: Referral ID Status Reason Start Date Expiration Date Visits Requested Visits Authorized [id number] Authorized Consult and Treat 04/12/2025 04/12/2026 21 21 Encounter Details Date Type Department Care Team (Late st Contact Info) Description 07/11/2025 11:15 AM EST Treatment [address] [phone] Jimmy Tripathi, PT 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 (CMS/HCC V24, CMS/HCC V28) (Primary Dx) Social History Tobacco Use Types Packs/Day Years Used Date Smoking Tobacco: Never Assessed Sex and Gender Information Value Date Recorded Sex Assigned at Male 04/13/2025 10:43 AM EDT Legal Sex Male 7:38 PM EST Gender Identity Male 04/13/2025 10:43 AM EDT Sexual Orientation Choose not to disclose 2024 10:43 AM EDT documented as of this encounter Progress Notes * Jimmy Tripathi, PT - 07/11/2025 11:15 AM EST [facility] - Outpatient PHYSICAL THERAPY DAILY TREATMENT NOTE - OP Date: 07/11/2025 Visit Number: [id number] Patient Name: Dustin De La Garza : 1980 Age: 44 y.o. Gender: male Diagnosis: No diagnosis found. Date of Onset/Surgery: 05/05/2025 Referring Provider: Christopher Sheridan MD Insurance: Payor: [employer] / Plan: [employer] MEDICAID / Product Type: *No Product type* / Patient Identified by: Jimmy Tripathi PT Language: Speaks and understands Divehi as preferred language with no manager government required Medications: Medications Ordered Prior to Encounter[1] Allergies: has no allergies on file. Precautions: Fall risk: Yes SUBJECTIVE Subjective Report: No new complaints Chart Reviewed: Yes Pain: 0/10 TREATMENT INTERVENTION: Nustep at level 5 x6 min Supine AA right knee flexion x10 x4 sets Supine with foot over edge, AA knee flexion x10 x4 sets Standing Right knee hip and knee flexion x10 x3 sets Forward/backward stepping in parallel bars with right AFO and insdtruction for increasing right knee flexion for foot clearance, performed x3 laps x3 sets ASSESSMENT/Response to Treatment Good Pt with improving RLE motor control but continues to use extensor synergy patterning with ambulation Patient Education: Education provided: Gait training Education Provided To: Patient utilizing Explanation and Demonstration mode(s) of education Response to Education: Applied Knowledge and Verbal Understanding PLAN POC Development/Review: No Change in the Plan of Care; Participants: Patient Interventions Time Entry: Modalities: Therapeutic procedures: Total Treatment Time: 40 Documentation completed by Jimmy Tripathi PT [1] No current outpatient medications on file prior to visit. No current facility-administered medications on file prior to visit. documented in this encounter Plan of Treatment Upcoming Encounters Date Type Department Care Team (Late st Contact Info) Description 07/18/2025 11:00 AM EST Treatment [facility] [address] [phone] Alexandra Cohn, PT 07/19/2025 12:00 PM EST Treatment [facility] Occupational Therapy [address] [place] [phone] Mariano Jacques, GUPTA/L 07/20/2025 11:00 AM EST Treatment [facility] [address] [phone] Alexandra Cohn, PT 07/26/2025 10:15 AM EST Treatment [facility] [address] [address] Jimmy Tripathi, PT 07/26/2025 11:15 AM EST Treatment [facility] [address] [address] Jackeline Ignacio CCC-CARRIAGE OPERATOR 07/29/2025 10:30 AM EST Treatment [facility] [address] [address] Jimmy Tripathi, PT 08/02/2025 11:15 AM EST Treatment [facility] [address] [address] Jackeline Ignacio CCC-CARRIAGE OPERATOR 08/02/2025 12:00 PM EST Treatment [facility] [address] [address] Mariano Jacques, GUPTA/L 08/05/2025 10:30 AM EST Treatment [facility] [address] [address] Jackeline Ignacio CCC-CARRIAGE OPERATOR 08/05/2025 11:15 AM EST Treatment [facility] [address] [phone] Mariano Jacques, GUPTA/L 08/09/2025 10:30 AM EST Treatment [facility] [address] [address] Jackeline Ignacio, SANTIAGO-CARRIAGE OPERATOR 08/09/2025 11:15 AM EST Treatment [facility] [address] [address] Mariano Jacques COTA/[place] 08/11/2025 11:15 AM EST Evaluation [facility] [address] [phone] Dante Chin, OT 08/12/2025 10:30 AM EST Treatment [facility] Speech Therapy [address] [phone] Jackeline Ignacio CCC-CARRIAGE OPERATOR 08/16/2025 10:30 AM EST Treatment [facility] Speech Therapy [address] [phone] Jackeline Ignacio CCC-CARRIAGE OPERATOR documented as of this encounter Goals Goal Patient Goal Type Associated Problems Recent Progress Patient-Stated? Author CARRIAGE OPERATOR LTG General No oCny Jeffrey, CARRIAGE OPERATOR Note: Pt will improve expressive receptive language skills to a sentence level to participate and communicate in iADLs mod I CARRIAGE OPERATOR STGs General No Cony Jeffrey, CARRIAGE OPERATOR Note: Pt will participate in education re aphasia and verbal apraxia and techniques to maximize communication Pt and family will ID 20 personally relevant words or phrases for scripting task and then read aloud given max verbal modeling Pt will verbalize 3-4 descriptors in structured semantic feature analysis tasks given mod verbal cues Pt will generate subjects and objects using VNeST format with 80% accuracy independently. Pt will participate in trial of high tech AAC with family assist Pt will participate in developed of personalized HEP program to complete 4-5 days/week. OT LTG 24 visits General On track( 025 11:36 AM EST) No Dante Chin, OT Note: Pt will participate in nuero re-ed to be able to use R UE as a gross assist for ADLs Pt will dress self MOD I Pt will bath self MOD I Pt will perform light home mgmnt MOD I PT LTGs General No Jimmy Tripathi, PT Note: Pt with ambulate x6 minutes with LAD and full right foot clearance throughout - not met Pt will ambulate x6 minutes with LAD with step-through pattern - met Pt will ascend/descend 12 stesp with LAD using reciprocal stepping pattern mod independent - not met Pt will ambulate x6 minutes with LAD mod independent - met Pt will be independent with HEP - ongoing PT STGs General No Jimmy Tripathi, PT Note: Pt will be fitted for a right AFO to improve ambulation - met Pt will increase right ankle PROM DF to 10 degrees for improved ambulation - met Pt will increase right hip abduction strength to 2+/5 for improving hip stability with ambulation - met Pt will complete FGA with LAD and score 14/30to indicate level of balance with ambulaiton - not met documented as of this encounter Visit Diagnoses Diagnosis 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
--- OUTSIDE RECORDS SUMMARY | 2025-07-12 10:30 | XMS_ITS | Encounter Summary ---
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 (CMS/HCC V24, CMS/HCC V28) Aphasia Christopher Sheridan MD [address] [place] [address] Phone: tel: fax: Referral ID Status Reason Start Date Expiration Date Visits Requested Visits Authorized [id number] Authorized Consult and Treat 04/12/2025 04/12/2026 25 21 Encounter Details Date Type Department Care Team (Late st Contact Info) Description 07/12/2025 10:30 AM EST Treatment [facility] Occupational Therapy [address] [phone] Dante Chin, OT 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 (CMS/HCC V24, CMS/HCC V28) (Primary Dx); Aphasia Social History Tobacco Use Types Packs/Day Years Used Date Smoking Tobacco: Never Assessed Sex and Gender Information Value Date Recorded Sex Assigned at Male 04/13/2025 10:43 AM EDT Legal Sex Male 7:38 PM EST Gender Identity Male 04/13/2025 10:43 AM EDT Sexual Orientation Choose not to disclose 2024 10:43 AM EDT documented as of this encounter Progress Notes * Silverio Alegria - 07/12/2025 10:30 AM EST [facility] - Outpatient OCCUPATIONAL THERAPY DAILY TREATMENT NOTE Date: 07/12/2025 Visit Number: 20 Patient Name: Dustin De La Garza : 1980 Age: 44 y.o. Gender: male Diagnosis: ICD-10-CM ICD-9-CM 1. 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 Aphasia R47.01 784.3 Date of Onset: 04/12/2025 Referring Provider: Christopher Sheridan MD Insurance: Payor: [employer] PLAN / Plan: [employer] MEDICAID / Product Type: *No Product type* / Patient identified by: Silverio Alegria Language: Speaks and understands Khmer as preferred language with no foreign language interpreter required Allergies: has no allergies on file. Precautions: Aphasia, fall risk SUBJECTIVE Subjective Report: I want to start getting the fingers straight Pain: None at rest OBJECTIVE Pt arrived to clinic alone, using a cane to amb. Pt used transportation service to get to clinic. TREATMENT INTERVENTION Procedures: Therex: Educated pt on how to use FitMi program (pt brought it to trial product), with the pt doing self-PROM/AAROM exercises using LUE to support RUE Weight bearing through exercise ball, pushing out and pulling back in Reaching for cones in front and sides using LUE while weightbearing through RUE to promote core strength and neuro re-ed Pain Reassessment: Unchanged Assessment/Response To Treatment: Good Pt able to participate in all exercises. Pt demo understanding of previous exercises. Patient Education: Education provided: Yes Education Provided To: Patient utilizing Explanation and Demonstration mode(s) of education Response to Education: Good PLAN POC Development/Review: No Change in the Plan of Care; Participants: Patient Equipment Recommended: none; Equipment Provided: Dycem to improve stability of FitMi pucks GOALS Goals Addressed This Visit's Progress OT LTG 24 visits On track Pt will participate in [facility] re-ed to be able to use R UE as a gross assist for ADLs Pt will dress self MOD I Pt will bath self MOD I Pt will perform light home mgmnt MOD I Total Treatment Time: 45 OT Therapeutic Procedures Time Entry Therapeutic Exercise Time Entry: 45 Documentation completed by Silverio Alegria Cosigned by Dante Chin OT at 07/12/2025 12:57 PM EST Associated attestation - Dante Chin, OT - 07/12/2025 12:57 PM EST I certify that I, Dante Chin, OT, was present and participatory during the delivery of care anddirected all aspects of care and decision making during this session. Note generated by student andedited for content accuracy. I have reviewed the Epic therapy documentation for 07/12/2025 by occupational therapy student, Silverio Alegria and concur with all documentation and attest to its accuracy, and to that of all associated charges. documented in this encounter Plan of Treatment Upcoming Encounters Date Type Department Care Team (Late st Contact Info) Description 07/18/2025 11:00 AM EST Treatment [facility] [address] [phone] Alexandra Cohn, PT 07/19/2025 12:00 PM EST Treatment [facility] Occupational Therapy [address] [phone] Mariano Jacques COTA/[place] 07/20/2025 11:00 AM EST Treatment [facility] [address] [phone] Alexandra Cohn, PT 07/26/2025 10:15 AM EST Treatment [facility] Outpatient [facility] [address] [address] Jimmy Tripathi, PT 07/26/2025 11:15 AM EST Treatment [facility] Speech Therapy [address] [address] Jackeline Ignacio CCC-VEGETABLE SPECKER 07/29/2025 10:30 AM EST Treatment [facility] Outpatient [facility] [address] [address] Jimmy Tripathi, PT 08/02/2025 11:15 AM EST Treatment [facility] [address] [address] Jackeline Ignacio CCC-VEGETABLE SPECKER 08/02/2025 12:00 PM EST Treatment [facility] [address] [address] Mariano Jacques, GUPTA/L 08/05/2025 10:30 AM EST Treatment [facility] [address] [address] Jackeline Ignacio CCC-VEGETABLE SPECKER 08/05/2025 11:15 AM EST Treatment [facility] [address] [address] Mariano Jacques, GUPTA/L 08/09/2025 10:30 AM EST Treatment [facility] [address] [address] Jackeline Ignacio CCC-VEGETABLE SPECKER 08/09/2025 11:15 AM EST Treatment [facility] [address] [address] Mariano Jacques, GUPTA/L 08/11/2025 11:15 AM EST [facility] [address] [address] Dante Chin, OT 08/12/2025 10:30 AM EST Treatment [facility] [address] [address] Jackeline Ignacio CCC-VEGETABLE SPECKER 08/16/2025 10:30 AM EST Treatment [facility] [address] [address] Jackeline Ignacio CCC-VEGETABLE SPECKER documented as of this encounter Goals Goal Patient Goal Type Associated Problems Recent Progress Patient-Stated? Author VEGETABLE SPECKER LTG General No Cony Jeffrey, VEGETABLE SPECKER Note: Pt will improve expressive receptive language skills to a sentence level to participate and communicate in iADLs mod I VEGETABLE SPECKER STGs General No Cony Jeffrey, VEGETABLE SPECKER Note: Pt will participate in education re [...] Chin, OT Note: Pt will participate in [facility] re-ed to be able to use R [...] cerebellar artery (CMS/HCC V24, CMS/HCC V28)- Primary Aphasia documented in this encounter Care Teams Skin Drier Relationship Specialty Start Date End Date Christopher Sheridan MD [address] [place] [address] Dr Henry MA PCP - General Family Medicine 04/12/25 documented as of this encounter
--- OUTSIDE RECORDS SUMMARY | 2025-07-12 11:15 | XMS_ITS | Encounter Summary ---
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 (CMS/HCC V24, CMS/HCC V28) Aphasia Chirstopher Sheridan MD [address] [place] [address] Phone: tel: fax: Referral ID Status Reason Start Date Expiration Date Visits Requested Visits Authorized [id number] Authorized Consult and Treat 04/12/2025 04/12/2026 35 26 Encounter Details Date Type Department Care Team (Late st Contact Info) Description 07/12/2025 11:15 AM EST Treatment [facility] Speech Therapy [address] [place] [phone] Jackeline Ignacio CCC-SCHOOL PHOTOGRAPHER Aphasia (Primary Dx); Apraxia; 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 [facility] SPEECH THERAPY [address] [place] [phone] Dept: [phone] Dept SPEECH THERAPY TREATMENT NOTE Date: 07/12/2025 Visit Number: 18 Patient Name: Dustin De La Garza : 1980 Age: 44 y.o. Gender: male Diagnosis: ICD-10-CM ICD-9-CM 1. Aphasia Chronic R47.01 784.3 2. Apraxia Chronic R48.2 784.69 3. 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 Refer to document in medical record. Allergies: He has no allergies on file. SUBJECTIVE Subjective Report: I rode myself today Any negative or significant change in functional status:No; Chart Reviewed: Yes OBJECTIVE Pt arrived on time for session; pt took transportation independently this date. Pt engaged and cooperative throughout session. \ TREATMENT INTERVENTIONS: Treatment of Speech, Language, Voice, Communication, and/or Auditory (Individual): Pt will participate in education re aphasia and verbal apraxia and techniques to maximize communication - continuous during each session Pt and family will ID 20 personally relevant words or phrases for scripting task and then read aloud given max verbal modeling - did not target this date. Pt will verbalize 3-4 descriptors in structured semantic feature analysis tasks given mod verbal cues - not targeted this date Pt will participate in trial of high tech AAC with family assist Pt participated in discussion re: update of SGD process. SCHOOL PHOTOGRAPHER heard back that evaluation was successfully submitted and [employer] rep would provide a more updated timeline re: device arrival moving forward. Given needed authorization from from pt's neurologist and then insurance company, SCHOOL PHOTOGRAPHER recommended pushing scheduled sessions to leave enough time to review new device; pt was agreeable. Pt andSLP worked out new appt times and pt provided with print out of updated appts. Pt attempted to add bus transportation folder independently for HEP, however unable to determine adding a single icon vs a folder. Folder creation modeled for pt, who then demonstrated independently.Pt then added icons to transportation page with 100% acc indep (name, ), SCHOOL PHOTOGRAPHER assistance to add lo nger phrases re: address and aphasia explanation. Pt encouraged to add the following buttons for HEP: Please give me some time to respond Please help Please call my mother at (enter your phone number) I have physical therapy I have occupational therapy I have speech therapy HEP: Add SGD buttons, list of VNeST verbs to practice for at least 30 mins, 2x/week when ST appts don't occur ASSESSMENT Excellent participation in SGD conversation and training. Scheduling and HEP provided. Patient Education: Education provided: expressive language and SGD Education Provided To: Patient utilizing Explanation and Demonstration mode(s) of education Response to Education: Applied Knowledge, Verbal Understanding, and Demonstrated Skills PLAN Development/Review: Change in the Plan of Care (pushed x4 appts) Participants: Patient BILLING ( This Date of Service 07/12/2025) Timed Services: Untimed Services: Speech Treatment (Individual) Time Entry: 45 TOTAL TREATMENT TIME: 45 Minutes Start Time: 11:15 Stop Time: 12:00 Documentation completed by Jackeline Ignacio CCC-SCHOOL PHOTOGRAPHER documented in this encounter Plan of Treatment Upcoming Encounters Date Type Department Care Team (Late st Contact Info) Description 07/18/2025 11:00 AM EST Treatment [facility] [address] [phone] Alexandra Cohn, NEIL 07/19/2025 12:00 PM EST Treatment [facility] Occupational Therapy [address] [address] Mariano Jacques COTA/L 07/20/2025 11:00 AM EST Treatment [facility] [address] [address] Alexandra Cohn, PT 07/26/2025 10:15 AM EST [facility] [address] [address] Jimmy Tripathi, PT 07/26/2025 11:15 AM EST Treatment [facility] [address] [address] Jackeline Ignacio CCC-SCHOOL PHOTOGRAPHER 07/29/2025 10:30 AM EST [facility] [address] [address] Jimmy Tripathi, PT 08/02/2025 11:15 AM EST Treatment [facility] [address] [address] Jackeline Ignacio CCC-SCHOOL PHOTOGRAPHER 08/02/2025 12:00 PM EST Treatment [facility] [address] [address] Mariano Jacques, GUPTA/L 08/05/2025 10:30 AM EST Treatment [facility] [address] [address] Jackeline Ignacio CCC-SCHOOL PHOTOGRAPHER 08/05/2025 11:15 AM EST Treatment [facility] [address] [address] Mariano Jacques, GUPTA/L 08/09/2025 10:30 AM EST Treatment [facility] [address] [address] Jackeline Ignacio CCC-SCHOOL PHOTOGRAPHER 08/09/2025 11:15 AM EST Treatment [facility] [address] [address] Mariano Jacques, GUPTA/L 08/11/2025 11:15 AM EST [facility] [address] [address] Dante Chin, OT 08/12/2025 10:30 AM EST Treatment [facility] [address] [place] [phone] Jackeline Ignacio CCC-SCHOOL PHOTOGRAPHER 08/16/2025 10:30 AM EST Treatment [facility] Speech Therapy 175 [facility] [address] [place] [address] Jackeline Ignacio CCC-SCHOOL PHOTOGRAPHER documented as of this encounter Goals Goal Patient Goal Type Associated Problems Recent Progress Patient-Stated? 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
--- OUTSIDE RECORDS SUMMARY | 2025-07-13 11:00 | XMS_ITS | Encounter Summary ---
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 (CMS/HCC V24, CMS/HCC V28) Aphasia Christopher Sheridan MD [address] [place] [address] Phone: tel: fax: Referral ID Status Reason Start Date Expiration Date Visits Requested Visits Authorized [id number] Authorized Consult and Treat 04/12/2025 04/12/2026 21 21 Encounter Details Date Type Department Care Team (Late st Contact Info) Description 07/13/2025 11:00 AM EST Treatment [address] [phone] Alexandra Cohn PT Cerebral infarction due to embolism of [...] as of this encounter Progress Notes * Alexandra Cohn, NEIL - 07/13/2025 11:00 AM EST [facility] - Outpatient PHYSICAL THERAPY DAILY TREATMENT NOTE - OP Date: 07/13/2025 Visit Number: 15 Patient Name: Dustin De LaG arza : 1980 Age: 44 y.o. Gender: male Diagnosis: ICD-10-CM ICD-9-CM 1. 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 Precautions: Fall risk: No SUBJECTIVE Subjective Report: No new complaints. Chart Reviewed: Yes Pain: no pain reported TREATMENT INTERVENTION: Pt completed 1x10 reps of sit-stands from chair with L UE support as a warm up. Pt completed 2 rounds to fatigue of mini squats without UE support with chair posterior for safety.PT cued pt to move L LE slightly forward to compel more weight to R side. Toe taps to 1st step in stairs to improve hip and knee flexion in functional manner. Pt exhibited circumduction and reduced hip and knee flexor activation. PT placed post It note as a cue on step with pt shooting to bring foot to target. Improved motor control observed with lesser circumduction. (Added to HEP) L LE step ups to 6 in block with L UE support and R LE prepositioned on block to strengthen R LE. 2x10 reps L LE step downs from 6 in block with L UE support and R LE prepositioned on block. PT unfastened AFO strap to allow for anterior tibial translation during lowering. Improved knee control noted throughout. 2 rounds to fatigue. Gait with cue for maintaining R stance for 5 seconds to maximize anterior weight shift. Improved mechanics with cue but pt able to only able to achieve 2-3 seconds per foot. ASSESSMENT/Response to Treatment Good Benefited from functional strengthening. Patient Education: Education provided: Gait training Education Provided To: Patient utilizing Explanation and Demonstration mode(s) of education Response to Education: Applied Knowledge and Verbal Understanding PLAN POC Development/Review: No Change in the Plan of Care; Participants: Patient Interventions Time Entry: Modalities: Therapeutic procedures: Neuromuscular Re-Education Time Entry: 45 Total Treatment Time: 45 Documentation completed by Alexandra Cohn PT [1] No current outpatient medications on file prior to visit. No current facility-administered medications on file prior to visit. documented in this encounter Plan of Treatment Upcoming Encounters Date Type Department Care Team (Late st Contact Info) Description 07/18/2025 11:00 AM EST Treatment [facility] [address] [phone] Alexandra Cohn, PT 07/19/2025 12:00 PM EST Treatment [facility] Occupational Therapy [address] [place] [phone] Mariano Jacques COTA/[place] 07/20/2025 11:00 AM EST Treatment [facility] [address] [address] Alexandra Cohn, PT 07/26/2025 10:15 AM EST Treatment [address] [address] Jimmy Tripathi, PT 07/26/2025 11:15 AM EST Treatment [facility] Speech Therapy [address] [place] [phone] Jackeline Ignacio CCC-PROCESS AREA SUPERVISOR 07/29/2025 10:30 AM EST Treatment [facility] [address] [address] Jimmy Tripathi, PT 08/02/2025 11:15 AM EST Treatment [facility] Speech Therapy [address] [place] [phone] Jackeline Ignacio CCC-PROCESS AREA SUPERVISOR 08/02/2025 12:00 PM EST Treatment [facility] Occupational [address] [address] Mariano Jacques COTA/L 08/05/2025 10:30 AM EST Treatment [facility] [address] [address] Jackeline Ignacio CCC-PROCESS AREA SUPERVISOR 08/05/2025 11:15 AM EST Treatment [facility] [address] [address] Georgie Mariano, GUPTA/L 08/09/2025 10:30 AM EST Treatment [facility] [address] [address] Jackeline Ignacio CCC-PROCESS AREA SUPERVISOR 08/09/2025 11:15 AM EST Treatment [facility] [address] [address] Georgie Mariano, GUPTA/L 08/11/2025 11:15 AM EST Evaluation [facility] [address] [address] Dante Chin, OT 08/12/2025 10:30 AM EST Treatment [facility] [address] [address] Jackeline Ignacio CCC-PROCESS AREA SUPERVISOR 08/16/2025 10:30 AM EST Treatment [facility] [address] [address] Jackeline Ignacio CCC-PROCESS AREA SUPERVISOR documented as of this encounter Goals Goal Patient Goal Type Associated Problems Recent Progress Patient-Stated? Author PROCESS AREA SUPERVISOR LTG General No Cony Jeffrey, PROCESS AREA SUPERVISOR Note: Pt will improve expressive receptive language skills to a sentence level to participate and communicate in iADLs mod I PROCESS AREA SUPERVISOR STGs General No Cony Jeffrey, PROCESS AREA SUPERVISOR Note: Pt will participate in education re [...] General On track( 025 11:36 AM EST) Dante Hurtado, OT Note: Pt will participate in nuero [...] Primary documented in this encounter Care Teams Applications Systems Engineer Relationship Specialty Start Date End Date Christopher Sheridan MD [address] [place] [address] Dr Henry MA PCP - General Family Medicine 04/12/25 documented as of this encounter
[2025-07-15 18:20] LABS: MANUAL DIFF FLAG NO
[2025-07-15 18:35] LABS: Hematocrit 44.5 % (42.0-52.0); Hemoglobin 14.5 g/dl (14.0-18.0); Imm Gran Abs Auto 0.02 X10*3/uL (0.00-0.03); Imm Gran Pct Auto 0.2 % (0.0-0.4); Lymphocytes Absolute Auto 2.5 X10*3/uL (1.2-4.9); Mean Corpuscular HGB Conc 32.6 g/dl (31.0-36.0); Mean Corpuscular Hemoglobin 25.8 pg (27.0-33.0); Mean Corpuscular Volume 79.2 fL (80.0-98.0); NRBC Abs Auto 0.000 X10*3/uL (0.0-0.012); NRBC Pct Auto 0.0 /100WBC (0.0-0.2); Platelet Count 325 X10*3/uL (160-400); Red Blood Count 5.62 X10*6/uL (4.60-5.80); Reticulocytes Absolute 0.047 X10*6/uL (0.026-0.095); White Blood Count 8.5 X10*3/uL (4.8-10.8)
[2025-07-15 18:50] LABS: Anion Gap 12 (12-20); Blood Urea Nitrogen 15 mg/dL (9-16); Calcium 9.2 mg/dL (8.4-10.2); Carbon Dioxide 26 mmol/L (22-29); Chloride 106 mmol/L (96-108); Estimated Glomerular Filt Rate > 60; Iron 49 mcg/dL (45-160); Percent Iron Saturation 16 % (15-50); Potassium 4.1 mmol/L (3.3-5.1); Sodium 140 mmol/L (135-145); Total Iron Binding Capacity 299 mcg/dL (228-428); Unsaturated Iron Binding 250 ug/dL
[2025-07-15 19:09] LABS: Ferritin 25 ng/mL (20-250)
[2025-07-15 19:16] LABS: Folate 4.8 ng/mL (> or = 4.0); Vitamin B12 591 pg/mL (200-900)
--- OUTSIDE RECORDS SUMMARY | 2025-07-15 21:35 | XMS_ITS | Clinical Summary ---
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 (CMS/HCC V24, CMS/HCC V28) (Primary Dx) 07/12/2025 11:15 AM EST Treatment [facility] [address] [phone] Jackeline Ignacio, SANTIAGO-ORGANISATIONAL PSYCHOLOGIST Aphasia (Primary Dx); Apraxia; 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 (CMS/HCC V24, CMS/HCC V28) 07/12/2025 10:30 AM EST [facility] [address] [phone] Dante Chin OT 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 (CMS/HCC V24, CMS/HCC V28) (Primary Dx); Aphasia 07/11/2025 11:15 AM EST Treatment [facility] [address] [phone] Jimmy Tripathi, PT 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 (CMS/HCC V24, CMS/HCC V28) (Primary Dx) 07/08/2025 11:15 AM EST Treatment [facility] [address] [place] [address] [phone] Jackeline Ignacio, CCC-ORGANISATIONAL PSYCHOLOGIST Aphasia (Primary Dx); Apraxia; 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 (CMS/HCC V24, CMS/HCC V28) 07/08/2025 10:30 AM EST Treatment [facility] Occupational [address] [phone] Mariano Jacques, GUPTA/L 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 (CMS/HCC V24, CMS/HCC V28) (Primary Dx); Aphasia 07/06/2025 12:00 PM EST Treatment [facility] Occupational [address] [phone] Mariano Jacques, GUPTA/L 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 (CMS/HCC V24, CMS/HCC V28) (Primary Dx); Aphasia 07/06/2025 11:00 AM EST Treatment [address] [phone] Alexandra Cohn, PT 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 (CMS/HCC V24, CMS/HCC V28) (Primary Dx) 07/04/2025 11:15 AM EST Treatment [address] [phone] Jimmy Tripathi, PT 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 (CMS/HCC V24, CMS/HCC V28) (Primary Dx) 07/01/2025 11:15 AM EDT Treatment [facility] Speech [address] [phone] Jackelnie Ignacio, [facility]-ORGANISATIONAL PSYCHOLOGIST Aphasia (Primary Dx); 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 (CMS/HCC V24, CMS/HCC V28); Apraxia 07/01/2025 10:30 AM EDT Treatment [facility] Occupational [address] [phone] Mariano Jacques, GUPTA/L 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 (CMS/HCC V24, CMS/HCC V28) (Primary Dx); Aphasia 06/29/2025 11:15 AM EDT Treatment [address] [phone] Shaw Eddy PTA 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 (CMS/HCC V24, CMS/HCC V28) (Primary Dx) 06/29/2025 10:30 AM EDT Evaluation [address] [phone] Dante Chin, NESS 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 (CMS/HCC V24, CMS/HCC V28) (Primary Dx) 06/28/2025 10:15 AM EDT Treatment [facility] Speech [address] [phone] Jackeline Ignacio, SANTIAGO-ORGANISATIONAL PSYCHOLOGIST Aphasia (Primary Dx); Apraxia; 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 (CMS/HCC V24, CMS/HCC V28) 06/24/2025 11:00 AM EDT Treatment [address] [phone] Mariano Jacques, GUPTA/L 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 (CMS/HCC V24, CMS/HCC V28) (Primary Dx); Aphasia 06/24/2025 10:15 AM EDT Treatment [facility] Speech [address] [phone] Jackeline Ignacio, CCC-ORGANISATIONAL PSYCHOLOGIST Aphasia (Primary Dx); Apraxia; 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 (CMS/HCC V24, CMS/HCC V28) 06/22/2025 10:15 AM EDT Treatment [address] [phone] Shaw Eddy, DENTAL SPECIALIST 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 (CMS/HCC V24, CMS/HCC V28) (Primary Dx) 06/21/2025 10:15 AM EDT Treatment [facility] Speech [address] [phone] Jackeline Ignacio, CCC-ORGANISATIONAL PSYCHOLOGIST Aphasia (Primary Dx); 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 (CMS/HCC V24, CMS/HCC V28) 06/21/2025 9:30 AM EDT Treatment [facility] Occupational [address] [phone] Mariano Jacques, GUPTA/L 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 (CMS/HCC V24, CMS/HCC V28) (Primary Dx); Aphasia 06/20/2025 9:45 AM EDT Treatment [address] [phone] Shaw Eddy, DENTAL SPECIALIST 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 (CMS/HCC V24, CMS/HCC V28) (Primary Dx) 06/17/2025 11:15 AM EDT Treatment [facility] Speech [address] [phone] Jackeline Ignacio, [facility]-ORGANISATIONAL PSYCHOLOGIST Aphasia (Primary Dx); 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 (CMS/HCC V24, CMS/HCC V28) 06/17/2025 10:30 AM EDT Treatment [facility] Occupational [address] [phone] Mariano Jacques, GUPTA/L 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 (CMS/HCC V24, CMS/HCC V28) (Primary Dx); Aphasia 06/14/2025 10:15 AM EDT Treatment [facility] Speech [address] [phone] Jackeline Ignacio, CCC-ORGANISATIONAL PSYCHOLOGIST Aphasia (Primary Dx); 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 (CMS/HCC V24, CMS/HCC V28) 06/13/2025 11:00 AM EDT Treatment [facility] [address] [phone] Jimmy Tripathi, PT 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 (CMS/HCC V24, CMS/HCC V28) (Primary Dx) 06/13/2025 10:15 AM EDT Treatment [facility] Occupational [address] [phone] Deysi Zapata COTA 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 (CMS/HCC V24, CMS/HCC V28) (Primary Dx); Aphasia 06/10/2025 11:15 AM EDT Treatment [facility] Speech [address] [phone] Jackeline Ignacio, CCC-ORGANISATIONAL PSYCHOLOGIST Aphasia (Primary Dx); 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 (CMS/HCC V24, CMS/HCC V28) 06/08/2025 11:15 AM EDT Treatment [address] [phone] Jimmy Tripathi, PT 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 (CMS/HCC V24, CMS/HCC V28) (Primary Dx) 06/08/2025 10:30 AM EDT Treatment [address] [phone] Dante Chin, OT 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 (CMS/HCC V24, CMS/HCC V28) (Primary Dx); Aphasia 06/07/2025 10:15 AM EDT Treatment [facility] Speech [address] [phone] Jackeline Ignacio, [facility]-ORGANISATIONAL PSYCHOLOGIST Aphasia (Primary Dx); 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 (CMS/HCC V24, CMS/HCC V28) 06/06/2025 12:30 PM EDT Treatment [address] [phone] Shaw Eddy, DENTAL SPECIALIST 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 (CMS/HCC V24, CMS/HCC V28) (Primary Dx) 06/06/2025 11:15 AM EDT Treatment [address] [phone] Deysi Zapata, GUPTA 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 (CMS/HCC V24, CMS/HCC V28) (Primary Dx); Aphasia 06/03/2025 9:45 AM EDT Treatment [facility] Speech [address] [phone] Jackeline Ignacio, [facility]-ORGANISATIONAL PSYCHOLOGIST Aphasia (Primary Dx); 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 (CMS/HCC V24, CMS/HCC V28) 06/03/2025 9:00 AM EDT Treatment [address] [phone] Mariano Jacques, GUPTA/L 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 (CMS/HCC V24, CMS/HCC V28) (Primary Dx); Aphasia 06/01/2025 11:00 AM EDT Treatment [address] [phone] Dante Chin, OT 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 (CMS/HCC V24, CMS/HCC V28) (Primary Dx); Aphasia 06/01/2025 9:45 AM EDT Treatment [address] [phone] Alexandra Cohn, NEIL 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 (CMS/HCC V24, CMS/HCC V28) (Primary Dx) 05/31/2025 10:15 AM EDT Treatment [facility] Speech [address] [phone] Jackeline Ignacio, SANTIAGO-ORGANISATIONAL PSYCHOLOGIST Aphasia (Primary Dx); 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 (CMS/HCC V24, CMS/HCC V28) 05/30/2025 12:45 PM EDT Treatment [address] [phone] Alexandra Cohn, PT 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 (CMS/HCC V24, CMS/HCC V28) (Primary Dx) 05/27/2025 11:00 AM EDT Treatment [address] [phone] Shaw Eddy, DENTAL SPECIALIST 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 (CMS/HCC V24, CMS/HCC V28) (Primary Dx) 05/27/2025 10:15 AM EDT Treatment [address] [phone] Jackeline Ignacio, SANTIAGO-ORGANISATIONAL PSYCHOLOGIST Aphasia (Primary Dx); 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 (CMS/HCC V24, CMS/HCC V28) 05/26/2025 11:00 AM EDT Treatment [facility] Occupational [address] [phone] Mariano Jacques, GUPTA/L 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 (CMS/HCC V24, CMS/HCC V28) (Primary Dx); Aphasia 05/24/2025 11:00 AM EDT Treatment [address] [phone] Deysi Zapata, GUPTA 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 (CMS/HCC V24, CMS/HCC V28) (Primary Dx); Aphasia 05/20/2025 8:00 AM EDT Treatment [address] [phone] Shaw Eddy, DENTAL SPECIALIST 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 (CMS/HCC V24, CMS/HCC V28) (Primary Dx); Aphasia 05/19/2025 11:00 AM EDT Treatment [facility] Speech [address] [phone] Jackeline Ignacio, [facility]-ORGANISATIONAL PSYCHOLOGIST Aphasia (Primary Dx); 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 (CMS/HCC V24, CMS/HCC V28) 05/18/2025 11:00 AM EDT Treatment [facility] Therapy [address] [place] [address] [phone] Dante Chin, OT 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 (CMS/HCC V24, CMS/HCC V28) (Primary Dx); Aphasia 05/17/2025 10:00 AM EDT Treatment [facility] [address] [place] [address] [phone] Oxana Russo, [facility]-ORGANISATIONAL PSYCHOLOGIST Aphasia (Primary Dx); 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 (CMS/HCC V24, CMS/HCC V28) 05/16/2025 11:00 AM EDT Treatment [facility] Occupational [address] [phone] Datne Chin, OT 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 (CMS/HCC V24, CMS/HCC V28) (Primary Dx); Aphasia 05/13/2025 10:00 AM EDT Treatment [facility] Speech [address] [phone] Vanda Engle [facility]-ORGANISATIONAL PSYCHOLOGIST Aphasia (Primary Dx); 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 (CMS/HCC V24, CMS/HCC V28) 05/12/2025 1:00 PM EDT Treatment [facility] Therapy [address] [place] [address] [phone] Deysi Zapata COTA 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 (CMS/HCC V24, CMS/HCC V28) (Primary Dx); Aphasia 05/11/2025 10:00 AM EDT Treatment [facility] Speech [address] [phone] Vanda Engle [facility]-ORGANISATIONAL PSYCHOLOGIST Aphasia (Primary Dx); 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 (CMS/HCC V24, CMS/HCC V28) 05/10/2025 10:15 AM EDT Treatment [facility] [address] [phone] Deysi Zapata, GUPTA 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 (CMS/HCC V24, CMS/HCC V28) (Primary Dx); Aphasia 05/05/2025 4:45 PM EDT Evaluation [address] [phone] Jimmy Tripathi, PT 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 (CMS/HCC V24, CMS/HCC V28); Aphasia 05/04/2025 Plan of Care Documentation [facility] [address] [phone] 05/03/2025 11:15 AM EDT Evaluation [facility] [address] [place] [phone] Dante Chin, OT 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 (CMS/HCC V24, CMS/HCC V28); Aphasia 04/27/2025 2:45 PM EDT Evaluation [facility] Speech [address] [phone] Cony Jeffrey, ORGANISATIONAL PSYCHOLOGIST Aphasia (Primary Dx); 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 (CMS/HCC V24, CMS/HCC V28) 04/27/2025 Plan of Care Documentation [facility] Speech [address] [phone] from Last 3 Months Social History Tobacco Use Types Packs/Day Years Used Date Smoking Tobacco: Never Assessed Sex and Gender Information Value Date Recorded Sex Assigned at Male 04/13/2025 10:43 AM EDT Legal Sex Male 7:38 PM EST Gender Identity Male 04/13/2025 10:43 AM EDT Sexual Orientation Choose not to disclose 2024 10:43 AM EDT Plan of Treatment Upcoming Encounters Date Type Department Care Team (Late st Contact Info) Description 07/18/2025 11:00 AM EST Treatment [facility] [address] [phone] Alexandra Cohn, PT 07/19/2025 12:00 PM EST Treatment [facility] [address] [phone] Mariano Jacques, GUPTA/L 07/20/2025 11:00 AM EST Treatment [facility] [address] [phone] Alexandra Cohn, PT 07/26/2025 10:15 AM EST Treatment [facility] [address] [phone] Jimmy Tripathi, PT 07/26/2025 11:15 AM EST Treatment [facility] [address] [phone] Jackeline Ignacio CCC-ORGANISATIONAL PSYCHOLOGIST 07/29/2025 10:30 AM EST Treatment [facility] [address] [phone] Jimmy Tripathi, PT 08/02/2025 11:15 AM EST [facility] [address] [phone] Jackeline Ignacio CCC-ORGANISATIONAL PSYCHOLOGIST 08/02/2025 12:00 PM EST Treatment [facility] [address] [phone] Mariano Jacques, GUPTA/L 08/05/2025 10:30 AM EST Treatment [facility] [address] [phone] Jackeline Ignacio CCC-ORGANISATIONAL PSYCHOLOGIST 08/05/2025 11:15 AM EST Treatment [facility] [address] [phone] Mariano Jacques, GUPTA/L 08/09/2025 10:30 AM EST Treatment [facility] [address] [phone] Jackeline Ignacio CCC-ORGANISATIONAL PSYCHOLOGIST 08/09/2025 11:15 AM EST [facility] [address] [phone] Mariano Jacques COTA/L 08/11/2025 11:15 AM EST [facility] [address] [phone] Dante Chin OT 08/12/2025 10:30 AM EST [facility] [address] [phone] Jackeline Ignacio CCC-SLP 08/16/2025 10:30 AM EST Treatment [facility] [address] [phone] Jackeline Ignacio, SANTIAGO-MATTHEW Health Maintenance Due Date Last Done Comments Hepatitis A Vaccines (1 of 2 - Risk 2-dose series) 12/23/1999 Hepatitis B Vaccines (1 of 3 - 19+ 3-dose series) 12/23/1999 HPV Vaccines (1 - 3-dose SCDM series) 12/23/2007 DTaP,Tdap,and Td Vaccines (2 - Td or Tdap) 05/07/2023 05/07/2013 Depression Screening 09/01/2024 HIV Screening 04/13/2025 Hepatitis C Screening 04/13/2025 Social Influencers of Health Screening 04/13/2025 COVID-19 Vaccine ( season) 2025 09/30/2022, 08/03/2021 Influenza Vaccine (#1) 2025 10/02/2022 Hypertension/CHF/CAD Annual BMP Blood Test 11/23/2025 11/23/2024, 11/22/2024, 11/21/2024, Additional history exists Cholesterol Screening (Lipid Panel) 11/06/2029 11/06/2024 RSV Immunization Adult Patients (1 - 1-dose 75+ series) 12/23/2055 HIB Vaccines Aged Out No longer eligi ble based on patient's age to complete this topic IPV Vaccines Aged Out No longer eligi ble based on patient's age to complete this topic MMR Vaccines Aged Out No longer eligi ble based on patient's age to complete this topic Meningococcal ACWY Vaccine Aged Out N o longer eligible based on patient's age to complete this topic Meningococcal B Vaccine Aged Out No l onger eligible based on patient's age to complete this topic Pneumococcal Vaccine: Pediatrics (0 to 5 Years) and At-Risk Patients (6 to 49 Years) Aged Out No longer eligible based on patient's age to complete this topic RSV Immunization Patients Under 20 months Aged Out No longer eligible based on patient's age to complete this topic Varicella Vaccines Aged Out No longer eligible based on patient's age to complete this topic Goals Goal Patient Goal Type Associated Problems Recent Progress Patient-Stated? Author ORGANISATIONAL PSYCHOLOGIST L[facility] General No Cony Jeffrey, ORGANISATIONAL PSYCHOLOGIST Note: Pt will improve expressive receptive language skills to a sentence level to participate and communicate in iADLs mod I ORGANISATIONAL PSYCHOLOGIST STGs General No Cony Jeffrey, ORGANISATIONAL PSYCHOLOGIST Note: Pt will participate in education re [...] Chin, OT Note: Pt will participate in ero re-ed to be able to use R [...] of balance with ambulaiton - not met Insurance [facility] Care Teams Chro Relationship Specialty Start Date End Date Christopher Sheridan MD [address] [place] [address] Dr Henry MA PCP - General Family Medicine 04/12/25
== END 2025-07-15 14:35 | disposition home or self-care (01) ==
LOC: HO.WFDLDS 14:34
PROVIDERS: Visit Provider Family Medicine
DX: Z00.00 Encounter for general adult medical examination without abnormal findings (principal); D64.9 Anemia, unspecified; E53.8 Deficiency of other specified B group vitamins
CPT/HCPCS: 36415; 80048; 82607; 82728; 82746; 83540; 85025; 85045

== ENCOUNTER 2025-08-08 14:50 | Outpatient (AMB) | payer OTHER, SELFPAY ==
--- NOTE | 2025-08-08 14:59 | A.OFFPC_ITS ---
Vital Signs 08/08/25 15:05 Height 5 ft 7 in Weight 197 lb 2 oz BMI 30.9 BP 125/74 Blood Pressure Location Lt brachial Position Sitting Respiration 12 Pulse 64 Pulse Source Pulse Oximeter Temp 97.3 F Temp Source Temporal Artery Scan Pulse Oximetry (%) 98 Oxygen Delivery Method Room Air Intake Visit Reasons: CPE 15 minutes Intake Note: CPE and review labs Database Management System Specialist Required: No Allergies acetaminophen (From VICODIN) Allergy (Mild, Verified 08/08/25 15:00) HIVES bee pollen (BEE STINGS) Allergy (Unknown, Verified 08/08/25 15:00) ANAPHYLATIC hydrocodone (Vicodin) Allergy (Unknown, Verified 08/08/25 15:00) hives From VICODIN Allergy (Mild, Uncoded 08/08/25 15:00) HIVES Medication List - Last Reconciled 08/08/25 by Christopher Sheridan MD amoxicillin 500 mg PO Q12H 14 days aspirin (Adult Low Dose Aspirin) 81 mg PO DAILY 90 days atorvastatin 80 mg PO BEDTIME 90 days baclofen 5 mg PO TID cetirizine 10 mg PO DAILY PRN 90 days epinephrine (EpiPen 2-Margarito) 0.3 mg (0.3 mL) IM Q4H PRN 30 days ferrous fumarate 325 mg PO DAILY 30 days metoprolol tartrate 25 mg PO BID 90 days miscellaneous medical supply Daily As directed, 999 days pantoprazole 20 mg PO DAILY 90 days quetiapine 50 mg PO DAILY 90 days Tobacco use date assessed: 08/08/25 Dental Screening Dental Screen Date: 08/08/25 Did you have a dental visit in the last 12 months?: Yes Did you have a dental problem in the last 6 months where you did not have access to dental care?: No Was dental information given to patient?: Patient has dentist HPI CPE 15 minutes HPI Details 44 y/o male presents for an extended exa m with f/u labs, health maint. Some labs drawn 07/15/25. Reviewed labs with pt. Improving anemia. No lipid panel. Blood pressure today 125/74, 64p. He is on metoprolol 25mg b.i.d. Notes Fhx of colon polyps. HPI Comments History of Present Illness Details Documentation assistance for Christopher Sheridan MD, was provided by Ernie Huang, [employer] on 08/08/2025 at 3:40 PM EST. I, Dr. Sheridan, have read, observed, and verified documentation. ? [facility] Social History Housing: Apartment Patient Tobacco Use Status: Former Tobacco user e-Cigarette/Vaping Use: Never Used Second Hand Smoke Exposure: No service: No Current occupational status: unemployed Current occupation: seeking employment. Current occupational exposures/hazards: No Cognitive needs: No Hearing needs: No Vision needs: No Questionnaire PHQ-9 Over the last 2 weeks, how often have you been bothered by any of the following problems? 1. Little interest or pleasure in doing things: not at all 2. Feeling down, depressed, or hopeless: not at all 3. Trouble falling or staying asleep, or sleeping too much: not at all 4. Feeling tired or having little energy: not at all 5. Poor appetite or overeating: not at all 6. Feeling bad about yourself - or that you are a failure or have let yourself or your family down: not at all 7. Trouble concentrating on things, such as reading the newspaper or watching television: not at all 8. Moving or speaking so slowly that other people could have noticed. Or the opposite - being so fidgety or restless that you have been moving around a lot more than usual: not at all 9. Thoughts that you would be better off or of hurting yourself in some way: not at all Total score: 0 Depression Screening Interpretation: Negative Depression Screening Done: Yes 49704 - PHQ-9 Billing: Yes Source: Developed by Drs. Jimmy Blevins, Christina Erwin, Robert Werner and colleagues, with an educational carmella from [employer]. Thrive Questionnaire Date Thrive assessed: 08/08/25 I am a: Parent/Caregiver What is your living situation today?: I have a steady place to live Within the past 12 months, did the food you bought not last and you didn't have the money to get more?: I choose not to answer this question Within the past 12 months, did you worry whether your food would run out before you got money to buy more?: I choose not to answer this question Do you have trouble paying for medicines?: I choose not to answer this question Do you have trouble getting transportation to medical appointments?: Yes Do you have trouble paying your heating and electricity bill?: I choose not to answer this question Do you have trouble taking care of your child, family member or friend?: I choose not to answer this question Do you have trouble with day-to-day activities such as bathing, preparing meals, shopping, managing finances, etc.?: Yes Are you currently unemployed and looking for a job?: No Are you interested in more education?: No Please select the resources that you would like help with: Transportation Currently or been in a relationship where the following occur: I choose not to answer THRIVE Score: 1 CRISTINA-7 AMB Questionnaire CRISTINA-7 Date CRISTINA - 7 assessed: 08/08/25 Feeling nervous, anxious, or on edge: 0 = Not at all Not being able to stop or control worryin = Not at all Worrying too much about different things: 0 = Not at all Trouble relaxin = Not at all Being so restless that it is hard to sit still: 0 = Not at all Becoming easily annoyed or irritable: 0 = Not at all Feeling afraid as if something awful might happen: 0 = Not at all Total CRISTINA-7 score (0-4 normal; 5-9 mild; 10-14 moderate; 15-21 severe): 0 Source: Developed by Drs. Jimmy Blevins, Christina Erwin, Robert Werner and colleagues, with an educational carmella from [employer]. CRISTINA-7 Assessment Billing CRISTINA-7 Assessment Tool: CRISTINA-7 Assessment 36068 Review of Systems Const Denies chills, Denies fatigue, Denies fever(s), Denies headache(s) and Denies weakness Eyes Denies change in vision ENT Denies dizziness, Denies headache(s), Denies hearing loss, Denies nasal congestion, Denies sinus pain, Denies sinus pressure and Denies sore throat Card Denies chest pain, Denies lightheadedness, Denies dyspnea and Denies other (palpitations) Resp Denies cough, Denies dyspnea and Denies wheezing GI Denies abdominal pain, Denies melena, Denies hematochezia, Denies change in bowel habits, Denies dyspepsia and Denies nausea Denies hematuria and Denies dysuria Musc Denies abnormal gait, Denies myalgias, Denies arthralgias, Denies numbness and Denies tingling Skin/Breast Denies rash, Denies unusual bruising and Denies wounds Neuro Denies abnormal gait, Denies dizziness, Denies headache(s), Denies memory loss, Denies numbness, Denies Sensory deficit (Neuro), Denies tingling and Denies weakness Psych Denies anxiety, Denies depression and Denies memory loss Endo Denies cold intolerance, Denies fatigue, Denies heat intolerance, Denies polydipsia and Denies polyuria Durga/Lymph Denies easy bleeding and Denies easy bruising Aller/Immun Denies wheezing Physical exam (Primary Care) Vital Signs: Last Vital Signs Temp 97.3 F 08/08/25 15:05 Pulse 64 08/08/25 15:05 Resp 12 08/08/25 15:05 BP 125/74 08/08/25 15:05 Pulse Ox 98 08/08/25 15:05 Oxygen Delivery Method Room Air 08/08/25 15:05 BMI result Body Mass Index 30.9 Tobacco/Smoking Status: Tobacco use Status Tobacco use date assessed 08/08/25 08/08/25 15:02 Patient Tobacco Use Status Former Tobacco user 08/08/25 15:02 e-Cigarette/Vaping Use Never Used 08/08/25 15:02 PHQ-9: PHQ-9 Score PHQ-9: Total score 0 08/08/25 15:02 Depression Screening Interpretation: Negative Thrive Assessment: Date of Thrive Assessment Date Thrive assessed 08/08/25 08/08/25 15:02 Currently or been in a relationship where the following occur: I choose not to answer Const General: no acute distress, well developed, alert and awake Nutritional Appearance: well nourished Orientation/consciousness: patient oriented x3 HENMT Head: Yes normocephalic and Yes atraumatic Ears: hearing grossly normal bilaterally and TM's normal bilaterally General nose exam: Normal external nose present and Normal nares present Mouth: Normal oral and palatal mucosa present and moist mucous membranes Teeth and gingiva: dentition normal Throat: Yes posterior oropharynx normal Eyes General: appearance normal, both eyes and all related structures Pupils: Equal, round and reactive pupils present and Pupil accommodation reflex normal EOM: EOMs intact bilaterally Neck Neck: Yes normal visual inspection, Yes no lymphadenopathy and Yes trachea midline Thyroid: Thyroid normal Carotids: no bruits Lymphatic: no lymphadenopathy noted Chest Chest palpation & inspection: normal inspection of the chest Resp Effort & Inspection: normal respiratory effort Auscultation: clear to auscultation bilaterally Cardio Rate: regular rate Rhythm: regular rhythm Heart sounds: S1 normal heart sound present, S2 normal heart sound present, no gallops, Murmur heart sound present and no rubs Bruits: no abdominal aortic bruits and no carotid bruits GI Palpation (GI): No Abdominal aortic bruit present, Soft to palpation, nontender, No hepatosplenomegaly present and No Rebound tenderness present Auscultation: normal bowel sounds General: Yes no CVA tenderness Back/Spine/Pelvis Back: no CVA tenderness Cervical Spine: cervical ROM normal and No Cervical spine tenderness Thoracic/Lumbar Spine: thoraco-lumbar ROM normal, No pain with thoraco-lumbar ROM, No thoracic spinal tenderness and No lumbar spinal tenderness Skin Lesions: no lesions Rashes: no rashes Trauma: no lacerations or abrasions Wounds: no wounds Nails: normal Neuro General: patient oriented x3 Cranial nerves: Yes Equal, round and reactive pupils present Cognition (Neuro): normal cognition Gait exam (Neuro): gait abnormal and Assisted gait required (Cane) Motor exam (neuro): 5/5 motor strength present throughout Sensory Exam: No Sensory deficit (Neuro) Deep tendon reflexes (DTR's): Right patellar reflex intensity grade: 2+ and Left patellar reflex intensity grade: 2+ Extrem General: Yes normal to inspection and No edema Psych Appearance: grossly normal Affect: normal affect Attitude: cooperative Thought process: Normal thought process present Coding Level of Care Code Est Pt Level 4 (78634) Diagnoses Mild anemia D64.9 Screening for prostate cancer Z12.5 Encounter for screening for malignant neoplasm of colon Z12.11 Cerebral septic emboli I76; I66.9 Endocarditis I38 Adult general medical exam Z00.00 Additional Codes CRISTINA-7 Assessment Billing - CRISTINA-7 Assessment Tool: CRISTINA-7 Assessment 56419 ([id number]) PHQ-9 - 67605 - PHQ-9 Billing: Yes ([id number]) Assessment & Plan Assessment & Plan (1) Mild anemia: Code(s): D64.9 - Anemia, unspecified Category: Medical Plan: Anemia has improved but his iron levels are in the low-normal range Will give him a short script for iron and recheck H&H as well as iron profile prior to his next visit and discuss (2) Screening for prostate cancer: Code(s): Z12.5 - Encounter for screening for malignant neoplasm of prostate Category: Medical Plan: Due for PSA-ordered (3) Encounter for screening for malignant neoplasm of colon: Code(s): Z12.11 - Encounter for screening for malignant neoplasm of colon Plan: Patient will be due for colonoscopy next year Family history of polyps Referred to Gastroenterology (4) Cerebral septic emboli: Code(s): I76 - Septic arterial embolism; I66.9 - Occlusion and stenosis of unspecified cerebral artery Category: Medical Plan: 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 No longer using IV drugs. Patient has right arm and leg weakness and spasticity He is undergoing physical therapy. No longer in a wheelchair-he is walking with a leg brace and a cane. Continue physical therapy. Continue cane. (5) Endocarditis: Code(s): I38 - Endocarditis, valve unspecified Category: Medical Plan: Patient has an appointment with cardiology He will have the filler feeder forward his office visit note (6) Adult general medical exam: Code(s): Z00.00 - Encounter for general adult medical examination without abnormal findings Category: Medical Plan: 44-year-old male presents for an extended exam Encouraged healthy diet with active lifestyle and plenty of exercise Orders: Orders Prostate Specific Antigen Scr Today Z12.5 - Encounter for screening for malignant neoplasm of prostate Complete Blood Count Auto Diff Today D64.9 - Anemia, unspecified, Z00.00 - Encounter for general adult medical examination without abnormal findings Comprehensive [place]. Panel Fast Today Z00.00 - Encounter for general adult medical examination without abnormal findings Lipid Panel Today Z00.00 - Encounter for general adult medical examination without abnormal findings IRON PROFILE Today D64.9 - Anemia, unspecified Referrals Gastroenterology Referral Z12.11 - Encounter for screening for malignant neoplasm of colon Medications: New ferrous fumarate 325 mg PO DAILY 30 tabs 1RF 30 days D64.9 - Anemia, unspecified
[2025-08-08 15:05] VITALS: BP 125/74; PULSE 64; RESP 12; TEMP 36.3; O2SAT 98; BMI 30.9
== END 2025-08-08 15:53 | disposition home or self-care (01) ==
LOC: HO.HMCFM 14:51
PROVIDERS: PCP Family Medicine; Visit Provider Family Medicine
DX: D64.9 Anemia, unspecified (principal); Z12.5 Encounter for screening for malignant neoplasm of prostate; Z12.11 Encounter for screening for malignant neoplasm of colon; I76 Septic arterial embolism; I66.9 Occlusion and stenosis of unspecified cerebral artery; I38 Endocarditis, valve unspecified; Z00.00 Encounter for general adult medical examination without abnormal findings

== ENCOUNTER → 2025-08-08 14:50 | Outpatient (BNVA) | payer OTHER, SELFPAY | PROVIDERS: PCP Family Medicine; Visit Provider Family Medicine | DX: Z00.00 Encounter for general adult medical examination without abnormal findings (principal); Z12.5 Encounter for screening for malignant neoplasm of prostate; Z12.11 Encounter for screening for malignant neoplasm of colon; D64.9 Anemia, unspecified; I76 Septic arterial embolism; I66.9 Occlusion and stenosis of unspecified cerebral artery; I38 Endocarditis, valve unspecified | CPT/HCPCS: 96127; 99212 ==